=== PATIENT | female | born 1940 | race Caucasian/White ===

== ENCOUNTER 2016-11-06 08:22 | Day surgery (SDC) | payer MEDICARE, OTHER ==
[~2016-11-06 08:22] MED LIST: DIPHENHYDRAMINE HCL 50 MG/ML VIAL ONE; EPINEPHRINE INJ 1 MG/10 ML DISP.SYRIN ONE; FENTANYL CITRATE INJ/PF 100 MCG/2 ML AMPUL ONE; FLUMAZENIL INJ 0.5 MG/5 ML VIAL IV ONE; GLUCAGON,HUMAN RECOMB 1 MG INJ ONE; NALOXONE HCL INJ/PF 0.4 MG/1 ML SDV ONE; ONDANSETRON HCL INJ/PF 4 MG/2 ML SDV ONE; PROMETHAZINE HCL INJ 25 MG/1 ML VIAL ONE
[2016-11-06] MEDS: MIDAZOLAM 2 MG/2 ML INJ ONE ×2 (09:30→09:36)
--- NOTE | 2016-11-06 09:42 | Operative Report ---
Operative Report DATE OF SURGERY: 11/06/16 Operative Report: The risks benefits and alternatives of the procedure explained to the patient in detail and informed consent is obtained that GIF Olympus video scope was inserted into the patient's mouth and hypopharynx the esophagus is identified intubated and insufflated the scope was then advanced through the esophagus stomach and duodenum retroflexion maneuver is done the esophagus stomach and first and second portions of the duodenum examined PREOPERATIVE DIAGNOSIS: Blood in stool POSTOPERATIVE DIAGNOSIS: Gastritis status post biopsy rule out Helicobacter pylori OPERATION: EGD with biopsy SURGEON: BLUE ROLLINS ANESTHESIA: Moderate Sedation - 3 mg of Versed, 50 g of fentanyl. TISSUE REMOVED OR ALTERED: Gastric specimens obtained to rule out for Helicobacter pylori COMPLICATIONS: None. ESTIMATED BLOOD LOSS: none. INTRAOPERATIVE FINDINGS: Normal esophagus. First and second portions of the duodenum are normal. PROCEDURE: Patient tolerated the procedure well. No immediate postprocedure complications are noted. Patient is discharged in good condition. Date of discharge 11/06/2016. Discharge diet: Regular. Discharge activity: Regular. Patient does have a 2-3 follow-up to discuss findings. We'll await on biopsies. If biopsies are negative she may need evaluation from below.
[2016-11-06 10:49] VITALS: BP 103/60
== END 2016-11-06 11:05 | disposition home or self-care (01) ==
LOC: END 08:22
PROVIDERS: ATTEND Internal Medicine Gastroenterology
PROC: 0DB68ZX Excision of Stomach, Via Natural or Artificial Opening Endoscopic, Diagnostic (ICD-10-PCS; principal; 2016-11-06 09:00)
DX: K29.50 Unspecified chronic gastritis without bleeding (principal); K21.9 Gastro-esophageal reflux disease without esophagitis; E78.5 Hyperlipidemia, unspecified; I10 Essential (primary) hypertension; R01.1 Cardiac murmur, unspecified; K75.81 Nonalcoholic steatohepatitis (NASH); Z79.899 Other long term (current) drug therapy
CPT/HCPCS: 43239; 88342 ×2; 88305 ×2; J2250; J3010; J0171; J1200; J1610; J2310; J2405; J2550; J3490

== ENCOUNTER → 2017-01-13 | Outpatient (CLI) | payer MEDICARE, OTHER ==
[2017-01-13 16:18] LABS: HEMATOCRIT 38.5 % (36.0-47.0); HEMOGLOBIN 12.8 g/dL (12.0-15.5); HGB HCT DIFFERENCE -0.1; MEAN CORPUSCULAR HEMOGLOBIN 27.8 pg (27.0-33.4); MEAN CORPUSCULAR HGB CONC 33.3 g/dL (32.0-36.0); MEAN CORPUSCULAR VOLUME 84 fl (80-97); RED CELL DISTRIBUTION WIDTH 17.1 % (11.5-14.0); WHITE BLOOD COUNT 7.6 10^3/uL (4.0-10.5)
== END ==
LOC: OD 15:46
PROVIDERS: ATTEND Surgery
DX: K62.5 Hemorrhage of anus and rectum (principal)
CPT/HCPCS: 36415; 85027

== ENCOUNTER 2017-05-11 08:54 | Emergency (ER) | payer MEDICARE, OTHER ==
[2017-05-11] MEDS ORDERED: ACETAMINOPHEN WITH CODEINE #3 TABLET PO ONE (09:53)
--- NOTE | 2017-05-11 10:14 | ER Document Report ---
ED GI/ - General Chief Complaint: Urinary Problem Stated Complaint: LEFT KNEE PAIN/INCONTINENCE Time Seen by Provider: 05/11/17 09:36 Notes: The patient is a 77-year-old female, past medical history arthritis, hypertension, presents with 1 week of intermittent urinary incontinence and 1 month of left knee pain. She has had x-rays and Dopplers of her knee, saw orthopedics and had a steroid injection. She is taking Motrin and applying Icy Hot to her knee. She is requesting an MRI of her knee today. Patient says that because of her knee, she is having difficulty making it to the bathroom now. She is using crutches. Patient denies chest pain, shortness of breath, fevers, back pain, fecal incontinence, saddle anesthesia, knee injury, numbness or tingling. TRAVEL OUTSIDE OF THE [place] IN LAST 30 DAYS: No - Related Data Allergies/Adverse Reactions: bimatoprost [From Lumigan] Allergy (Mild, Verified 05/11/17 09:03) IRRITATION brimonidine tartrate [From Alphagan] Allergy (Mild, Verified 05/11/17 09:03) RASH, IRRITATION niacin Adverse Reaction (Verified 05/11/17 09:03) Past Medical History - General Information source: Patient - Social History Smoking Status: Never Smoker Family History: Reviewed & Not Pertinent - Past Medical History Cardiac Medical History: Reports: Hx Hypercholesterolemia Denies: Hx Coronary Artery Disease, Hx Heart Attack, Hx Hypertension Pulmonary Medical History: Denies: Hx Asthma, Hx Bronchitis, Hx COPD, Hx Pneumonia Neurological Medical History: Denies: Hx Cerebrovascular Accident, Hx Seizures Renal/ Medical History: Denies: Hx Peritoneal Dialysis GI Medical History: Reports: Hx Gastroesophageal Reflux Disease. Denies: Hx Hepatitis, Hx Hiatal Hernia, Hx Ulcer Musculoskeltal Medical History: Reports Hx Arthritis - GENERALIZED Infectious Medical History: Denies: Hx Hepatitis Past Surgical History: Reports: Hx Appendectomy, Hx Bowel Surgery, Hx Section. Denies: Hx Hysterectomy, Hx Mastectomy, Hx Open Heart Surgery, Hx Pacemaker - Immunizations Hx Diphtheria, Pertussis, Tetanus Vaccination: Yes Hx Pneumococcal Vaccination: 10/27/00 Review of Systems - Review of Systems Notes: REVIEW OF SYSTEMS: CONSTITUTIONAL: -fevers, -chills EENT: -eye pain, -difficulty swallowing, -nasal congestion CARDIOVASCULAR:-chest pain, -syncope. RESPIRATORY: -cough, -SOB GASTROINTESTINAL: -abdominal pain, -nausea, -vomiting, -diarrhea GENITOURINARY: -dysuria, -hematuria, +urinary incontinence MUSCULOSKELETAL: +left knee pain, -back pain, -neck pain SKIN: -rash or skin lesions. HEMATOLOGIC: -easy bruising or bleeding. LYMPHATIC: -swollen, enlarged glands. NEUROLOGICAL: -altered mental status or loss of consciousness, -headache, - neurologic symptoms PSYCHIATRIC: -anxiety, -depression. ALL OTHER SYSTEMS REVIEWED AND NEGATIVE. Physical Exam - Vital signs Vitals: Temp Pulse Resp BP Pulse Ox 97.6 F 113 H 18 127/99 H 97 05/11/17 09:02 05/11/17 09:02 05/11/17 09:02 05/11/17 09:02 05/11/17 09:02 - Notes Notes: PHYSICAL EXAMINATION: GENERAL: Well-appearing, well-nourished and in no acute distress. HEAD: Atraumatic, normocephalic. EYES: Pupils equal round and reactive to light, extraocular movements intact, sclera anicteric, conjunctiva are normal. ENT: nares patent, oropharynx clear without exudates. Moist mucous membranes. NECK: Normal range of motion, supple without lymphadenopathy LUNGS: Breath sounds clear to auscultation bilaterally and equal. No wheezes rales or rhonchi. HEART: Regular rate and rhythm without murmurs ABDOMEN: Soft, nontender, normoactive bowel sounds. No guarding, no rebound. No masses appreciated. EXTREMITIES: Tenderness over left medial knee, no redness or swelling; strong distal pulses NEUROLOGICAL: Cranial nerves grossly intact. Normal speech, normal gait. Normal sensory and motor exams. PSYCH: Normal mood, normal affect. SKIN: Warm, Dry, normal turgor, no rashes or lesions noted. Course - Re-evaluation Re-evalutation: Patient appears well. No evidence of septic joint. Her initial tachycardia on triage resolved and this was most likely caused by her knee pain when she was walking. She has already had x-rays and Dopplers of her left knee and is following up with orthopedics. Told her that unfortunately we are unable to get an MRI of her knee today in the emergency room and to have this scheduled by her orthopedic surgeon. Urine does not show any evidence of UTI. Instructed her to follow-up with gynecology/urology for further evaluation and treatment. - Vital Signs Vital signs: Temp Pulse Resp BP Pulse Ox 97.6 F 113 H 18 127/99 H 97 05/11/17 09:02 05/11/17 09:02 05/11/17 09:02 05/11/17 09:02 05/11/17 09:02 - Laboratory Laboratory results interpreted by me: 05/11/17 10:55 Urine Blood SMALL H Discharge - Discharge Clinical Impression: Left knee pain Qualifiers: Chronicity: chronic Qualified Code(s): M25.562 - Pain in left knee Urinary incontinence Qualifiers: Urinary Incontinence type: unspecified incontinence Qualified Code(s): R32 - Unspecified urinary incontinence Condition: Stable Disposition: HOME, SELF-CARE Additional Instructions: Urinary Incontinence Urinary incontinence is unexpected leakage of urine from the bladder. It can be caused by damaged or weak pelvic muscles (such as after childbirth), bladder inflammation, weak bladder sphincter (valve), medications, prostate problems, and nerve problems. This is a common problem, especially in our older patients. Treatment of incontinence depends on the severity, and on the underlying cause. We test for urinary tract infection. If we suspect a medicine may be contributing to the problem, we may stop it or lower the dosage. If the problem can't be corrected with medication or surgery, you may need to use absorbent underwear. For men, a "condom catheter" over the penis can collect urine. It's sometimes necessary to keep a catheter inside the bladder. The following are different types of urinary incontinence. Stress incontinence: A sudden burst of urine with cough or sneeze. This is common in women with multiple children. Pelvic muscle (Kegel) exercises may help. An incontinence pad catches the occasional accident. If severe, an operation to suspend of the bladder may correct the problem. Overflow incontinence: Leakage from an over-filled bladder. This type of incontinence is usually caused by an enlarged prostate or narrowed urethra. Prostatic obstruction can be treated with medication. Severe cases may require prostate surgery. Neurogenic bladder: Sudden emptying of the bladder due to injury or disease of the nerves that control the bladder, or overflow caused by lack of bladder contraction (atonic bladder). This usually requires a catheter, or the wearing of incontinence undergarments. A weak (atonic) bladder sometimes responds to medicine such as bethanechol (Urecholine). Overactive bladder: The bladder is irritable and tightens when it's not full. The sudden urge to urinate makes it hard to avoid passage of urine. This can often be treated with medication such as oxybutynin. Sphincter atony: The muscle that holds urine in the bladder is weak. This often causes incontinence at night. Medication such as imipramine or psuedoephedrine can sometimes help. Arthritis Your symptoms are due to arthritis. Arthritis is an inflammation of the joints. There are many types -- osteoarthritis (due to "wear and tear"), auto- immmune arthritis (such as rheumatoid, lupus, Lesley's, and others), and crystal -induced arthritis (such as gout and pseudogout). The physician's examination, combined with laboratory tests, will determine the cause of your arthritis. All types of arthritis are treated with antiinflammatory medications. Other medication may be required for special types of arthritis, or if your problem does not respond to the antiinflammatory medicine. Local warmth may be helpful. Move the involved joints through the full range of motion daily. Mild exercise is usually still possible for most persons with arthritis (ask your physician). Swimming provides good exercise without damaging the joints. Contact the physician if you are worsening in any way. Arthralgia Arthralgia is pain in the joints. We use the word arthralgia to describe joint pain where there's no history of injury, no known joint disease, and the joints are normal to examination. Arthralgia can be a symptom of an acute illness, such as influenza, hepatitis, or serum sickness. Sometimes the joint pain comes before any other symptoms. Arthralgia can also be an early symptom of joint disease, such as rheumatoid arthritis or lupus. If arthralgia is accompanied by an acute illness that explains the joint pain, such as mononucleosis, no further testing needs to be done. When there's no clear reason for the pain, tests may be done to see if there's an inflammatory disease of the joints. The usual treatment is anti-inflammatory medication, such as ibuprofen. Joint aches can be soothed with a heating pad or hot compress. If joints remain painful more than a few days, you'll need testing and followup. Return if a joint becomes swollen, red, or severely painful. Prescriptions: Acetaminophen with Codeine [Tylenol #3 Tablet] 1 each PO Q4HP PRN #10 tablet PRN Reason: Referrals: SHAY NEAL MD [Primary Care Provider] - Follow up as needed PATRIZIA TARIQ MD [ACTIVE STAFF] - Follow up as needed ELBA GALINDO MD [ACTIVE STAFF] - Follow up as needed SHAY BRADLEY DO [METAL POLISHER AND BUFFER APPRENTICE] - Follow up as needed
[2017-05-11 11:11] LABS: APPEARANCE,URINE CLEAR; BILIRUBIN,URINE NEGATIVE (NEGATIVE); GLUCOSE, URINE NEGATIVE (NEGATIVE); KETONES,URINE NEGATIVE (NEGATIVE); LEUKOCYTE ESTERASE,URINE NEGATIVE (NEGATIVE); NITRITE,URINE NEGATIVE (NEGATIVE); PROTEIN,URINE NEGATIVE (NEGATIVE); UROBILINOGEN,URINE NEGATIVE mg/dL (<2.0)
[2017-05-11 11:31] VITALS: BP 141/76
== END 2017-05-11 11:40 | disposition home or self-care (01) ==
LOC: ER 08:54
DX: R32 Unspecified urinary incontinence (principal); M25.562 Pain in left knee; R39.198 Other difficulties with micturition; I10 Essential (primary) hypertension
CPT/HCPCS: 99283; 81001; A9270

== ENCOUNTER 2018-11-06 10:10 | Inpatient (IN) | payer MEDICARE ==
[2018-11-06] MEDS ORDERED: ASPIRIN 81 MG TABLET, CHEWABLE PO ONE (10:31)
[2018-11-06] MEDS ORDERED: NORMAL SALINE 1000 ML 1,000 ML IV ONE (10:32)
--- NOTE | 2018-11-06 10:37 | ER Document Report ---
ED Cardiac - General Chief Complaint: Fall Stated Complaint: FALL Time Seen by Provider: 11/06/18 10:22 Mode of Arrival: Ambulatory Information source: Patient Notes: History of Present Illness Chief Complaint:[ chest pain] [ 78 years old female with a history of cardiac arrhythmia was seen by childcare provider and treated with medication which she cannot remember. This morning when she woke up she was feeling heart beating faster but not significant enough but she went out had a breakfast and came back home. The she started having dizziness with rapid heartbeat, appeared pale at one time, and chest pressure. Therefore called EMS and came to the ED. It was associated with diaphoresis, lightheadedness and dizziness. Denies any left arm numbness tingling sensation on nausea. Denies any difficulty in breathing. Denies any blurring of vision, denies any focal weakness numbness tingling sensation. By the time she was brought in to the ED by the EMS she was feeling comfortable. Except slight dizziness. History obtained from [patient] Symptoms began:[ today] Onset: [gradual] Timing: [constant, now gone] Quality: ["pain"] Intensity: [moderate] Location: [Chest] Radiation: [none] Migration: [none] Aggravating factors: [none] Relieving factors: [none] Major PE risk factors: [none] Major aortic dissection risk factors: [none] Review of Systems: All other systems negative as reviewed. CONSTITUTIONAL No fever, No chills, No sweats. EYES No eye pain. ENT No URI symptoms, No sore throat, No ear pain. CARDIOVASCULAR + chest pain, No palpitations, No edema. RESPIRATORY No Cough, No SOB, No wheezing. GASTROINTESTINAL No abdominal pain, No nausea, No diarrhea, No vomiting, No GI Bleeding. GENITOURINARY No UTI symptoms. MUSCULOSKELETAL No back pain, No calf swelling, No calf pain. SKIN No Rash. NEUROLOGIC No Headache Physical Exam CONSTITUTIONAL Vital signs reviewed, Patient appears comfortable, Alert and oriented X 3, Normal stature. Pleasant female not seems to be in any acute distress HEAD Atraumatic, Normocephalic. EYES Eyes are normal to inspection, No discharge from eyes, Extraocular muscles intact, Sclera are normal, Conjunctiva are normal. ENT Ears normal to inspection, Nose examination normal, Posterior pharynx normal, Mouth normal to inspection. NECK Normal ROM, No jugular venous distention, No meningeal signs, no carotid bruit. RESPIRATORY CHEST Chest is nontender, Breath sounds normal, No respiratory distress. CARDIOVASCULAR RRR, No murmurs, Normal S1 S2, No rub, No gallop. ABDOMEN Abdomen is nontender, No pulsatile masses, No other masses, Bowel sounds normal, No distension, No peritoneal signs, No hernias. BACK There is no CVA Tenderness, There is no tenderness to palpation, Normal inspection. UPPER EXTREMITY Inspection normal, No cyanosis, No clubbing, No edema, 2+ radial pulses. LOWER EXTREMITY Inspection normal, No cyanosis, No clubbing, No edema, No calf tenderness, 2+ femoral pulses. NEURO No focal motor deficits, No focal sensory deficits, Speech normal. SKIN Skin is warm, Skin is dry, Skin is normal color. LYMPHATIC No adenopathy in neck. PSYCHIATRIC Normal affect. TRAVEL OUTSIDE OF THE [place] IN LAST 30 DAYS: No - HPI Notes: Dictated - Related Data Allergies/Adverse Reactions: bimatoprost [From Lumigan] Allergy (Mild, Verified 05/11/17 09:03) IRRITATION brimonidine tartrate [From Alphagan] Allergy (Mild, Verified 05/11/17 09:03) RASH, IRRITATION niacin Adverse Reaction (Verified 05/11/17 09:03) Past Medical History - Social History Smoking Status: Never Smoker Frequency of alcohol use: Rare Lives with: Family Family History: Reviewed & Not Pertinent - Past Medical History Cardiac Medical History: Reports: Hx Hypercholesterolemia Denies: Hx Coronary Artery Disease, Hx Heart Attack, Hx Hypertension Pulmonary Medical History: Denies: Hx Asthma, Hx Bronchitis, Hx COPD, Hx Pneumonia Neurological Medical History: Denies: Hx Cerebrovascular Accident, Hx Seizures Renal/ Medical History: Denies: Hx Peritoneal Dialysis GI Medical History: Reports: Hx Gastroesophageal Reflux Disease. Denies: Hx Hepatitis, Hx Hiatal Hernia, Hx Ulcer Musculoskeletal Medical History: Reports Hx Arthritis - GENERALIZED Infectious Medical History: Denies: Hx Hepatitis Past Surgical History: Reports: Hx Appendectomy, Hx Bowel Surgery, Hx Section. Denies: Hx Hysterectomy, Hx Mastectomy, Hx Open Heart Surgery, Hx Pacemaker - Immunizations Hx Diphtheria, Pertussis, Tetanus Vaccination: Yes Hx Pneumococcal Vaccination: 10/27/00 Review of Systems - Review of Systems Notes: Dictated Physical Exam - Vital signs Vitals: Resp Pulse Ox 18 98 11/06/18 10:19 11/06/18 10:19 - Notes Notes: Dictated Course - Re-evaluation Re-evalutation: 11/06/18 15:08 Given IV fluids - Vital Signs Vital signs: Temp Pulse Resp BP Pulse Ox 99.0 F 120 H 18 102/72 95 11/07/18 04:00 11/07/18 07:00 11/07/18 04:00 11/07/18 04:00 11/07/18 04:00 - Laboratory Result Diagrams: 11/07/18 04:25 11/07/18 04:25 Laboratory results interpreted by me: 11/06/18 11/06/18 11/06/18 09:50 09:50 14:17 Plt Count 130 L BUN 23 H Est GFR (Non-Af Amer) 59 L Glucose 120 H NT-Pro-B Natriuret Pep 511 H - Diagnostic Test Radiology reviewed: Reports reviewed - Reported by radiologist as unremarkable - EKG Interpretation by Me Rate: Tachycardia - Sinus tachycardia, normal axis no acute ST elevation ST depression. T wave inversion in V5 V6. Occasional PVC. Discharge - Discharge Clinical Impression: Chest pain, rule out acute myocardial infarction, Palpitation Hypotension Qualifiers: Hypotension type: unspecified hypotension type Qualified Code(s): I95.9 - Hypotension, unspecified Condition: Fair Disposition: ADMITTED INPATIENT Admitting Provider: Hospitalist Unit Admitted: Telemetry
[2018-11-06 10:52] LABS: ABSOLUTE EOSINOPHILS # (AUTO) 0.1 10^3/uL (0.0-0.6); ABSOLUTE LYMPHOCYTES (AUTO) 1.9 10^3/uL (0.5-4.7); ABSOLUTE MONOCYTES (AUTO) 0.7 10^3/uL (0.1-1.4); ABSOLUTE NEUT (AUTO) 4.4 10^3/uL (1.7-8.2); BASOPHILS % (AUTO) 0.6 % (0-2); EOSINOPHILS % (AUTO) 0.8 % (0-6); HEMATOCRIT 41.7 % (36.0-47.0); HEMOGLOBIN 13.8 g/dL (12.0-15.5); MEAN CORPUSCULAR HEMOGLOBIN 28.3 pg (27.0-33.4); MEAN CORPUSCULAR VOLUME 86 fl (80-97); MONOCYTES % (AUTO) 10.1 % (3-13); RED BLOOD COUNT 4.87 10^6/uL (3.72-5.28); RED CELL DISTRIBUTION WIDTH 13.8 % (11.5-14.0); SEGMENTED NEUTROPHILS % (AUTO) 61.5 % (42-78); TOTAL CELLS COUNTED % (AUTO) 100 %; WHITE BLOOD COUNT 7.1 10^3/uL (4.0-10.5)
--- NOTE | 2018-11-06 11:01 | RADIOLOGY REPORT (SQ) ---
EXAM DESCRIPTION: CHEST SINGLE VIEW COMPLETED DATE/TIME: 11/06/2018 10:53 am REASON FOR STUDY: Chest pain COMPARISON: 01/14/2012. EXAM PARAMETERS: NUMBER OF VIEWS: One view. TECHNIQUE: Single frontal radiographic view of the chest acquired. RADIATION DOSE: NA LIMITATIONS: None. FINDINGS: LUNGS AND PLEURA: No opacities, masses or pneumothorax. No pleural effusion. MEDIASTINUM AND HILAR STRUCTURES: No masses. Contour normal. HEART AND VASCULAR STRUCTURES: Heart normal in size. Normal vasculature. Ectatic aorta. BONES: No acute findings. HARDWARE: None in the chest. OTHER: No other significant finding. IMPRESSION: NO ACUTE RADIOGRAPHIC FINDING IN THE CHEST. TECHNICAL DOCUMENTATION: JOB ID: [id number] [employer]- All Rights Reserved Reading location - IP/workstation name: [email or web address]
[2018-11-06 11:09] LABS: ALANINE AMINOTRANSFERASE 19 U/L (9-52); ALBUMIN 4.6 g/dL (3.5-5.0); ALKALINE PHOSPHATASE 50 U/L (38-126); ANION GAP 10 (5-19); ASPARTATE AMINO TRANSFERASE 24 U/L (14-36); BILIRUBIN,DIRECT 0.1 mg/dL (0.0-0.4); BILIRUBIN,TOTAL 0.5 mg/dL (0.2-1.3); BLOOD UREA NITROGEN 23 mg/dL (7-20); CALCIUM 10.1 mg/dL (8.4-10.2); CARBON DIOXIDE 26 mmol/L (22-30); CHLORIDE 104 mmol/L (98-107); CREATINE KINASE 83 U/L (30-135); GLUCOSE 120 mg/dL (75-110); POTASSIUM 4.4 mmol/L (3.6-5.0); SODIUM 140.4 mmol/L (137-145); TOTAL PROTEIN 7.5 g/dL (6.3-8.2)
[2018-11-06 11:17] LABS: PLATELET COUNT 130 10^3/uL (150-450)
[2018-11-06 11:21] LABS: CREATINE KINASE MB 1.59 ng/mL (<4.55)
[2018-11-06 11:22] LABS: TROPONIN I < 0.012 ng/mL
[2018-11-06] MEDS ORDERED: NORMAL SALINE 1000 ML 1,000 ML IV PRN (12:44)
[2018-11-06] MEDS ORDERED: METOPROLOL TARTRATE 25 MG TABLET PO ONE (14:50)
[2018-11-06] MEDS ORDERED: METOPROLOL TARTRATE PF/INJ 5 MG/5 ML SDV IV PRN (15:58)
--- NOTE | 2018-11-06 16:19 | PDOC H&P ---
History of Present Illness Admission Date/PCP: RAGHAV LARES MD Patient complains of: Came in with complaints of headaches and dizziness and palpitations in association with left-sided chest pain. History of Present Illness: MEGAN ARTEAGA is a 78 year old female with history of colon resection secondary to chronic bleeding, hyperlipidemia, gastroesophageal reflux disease, cardiac arrhythmia for unknown etiology came to the emergency room with compla ints of on and off headaches heaviness in the head associated with shortness of breath palpitations. According to the patient and family this is going on for a while and for the last few days things are getting worse decided to came to the emergency room for further evaluation. For this palpitations she saw solar panel installer in [facility] they did a heart monitoring with the device and she was told that also electrical activity was abnormal in the heart but she is stable nothing to worry about and she was started on metoprolol. She does not know further details. This was happened 5 years ago. The chest pain describing today's left-sided chest pain heaviness in the chest associated with shortness of breath on and off pain associated with increasing activity. No nausea or vomitings diarrhea. Cough increasing pain in the both lower extremity with activity for the last month or 2. Emergency room she is found to be in the heart rate of more than 120 with hypotension systolic blood pressure of 90s she was given 1 L of IV fluids. At the time of examination blood pressure is still 95/70. With heart rate of 110. EKG shows to me is atrial fibrillation without any P wave and troponin was negative. Past Medical History Cardiac Medical History: Reports: Hyperlipidema Denies: Coronary Artery Disease, Myocardial Infarction, Hypertension Pulmonary Medical History: Denies: Asthma, Bronchitis, Chronic Obstructive Pulmonary Disease (COPD), Pneumonia Neurological Medical History: Denies: Seizures GI Medical History: Reports: Gastroesophageal Reflux Disease Denies: Hepatitis, Hiatal Hernia Musculoskeltal Medical History: Reports: Arthritis - GENERALIZED Hematology: Denies: Anemia, Sickle Cell Disease Past Surgical History Past Surgical History: Reports: Appendectomy, Section, Other - Near complete colon resection Denies: Amputation, Hysterectomy, Mastectomy, Pacemaker Social History Smoking Status: Never Smoker Frequency of Alcohol Use: None Hx Recreational Drug Use: No Hx Prescription Drug Abuse: No - Advance Directive Resuscitation Status: Full Code Family History Family History: Reviewed & Not Pertinent Parental Family History Reviewed: Yes - Family history of colon cancer and breast cancer. Children Family History Reviewed: Yes Sibling(s) Family History Reviewed.: Yes Medication/Allergy Allergies/Adverse Reactions: bimatoprost [From Lumigan] Allergy (Mild, Verified 05/11/17 09:03) IRRITATION brimonidine tartrate [From Alphagan] Allergy (Mild, Verified 05/11/17 09:03) RASH, IRRITATION niacin Adverse Reaction (Verified 05/11/17 09:03) Review of Systems Constitutional: ABSENT: fever(s), headache(s), weight gain, weight loss Eyes: ABSENT: visual disturbances Ears: ABSENT: hearing changes Cardiovascular: PRESENT: chest pain, dyspnea on exertion. ABSENT: edema, palpitations Respiratory: ABSENT: hemoptysis Musculoskeletal: PRESENT: other - Lower leg pains Neurological: PRESENT: dizziness. ABSENT: focal weakness, frequent falls, syncope Psychiatric: ABSENT: anxiety, depression, hallucinations, homidical ideation Physical Exam Vital Signs: Temp Pulse Resp BP Pulse Ox 97.8 F 16 92/69 L 96 11/06/18 10:22 11/06/18 11:04 11/06/18 11:04 11/06/18 11:04 Intake & Output 11/05/18 11/06/18 11/07/18 06:59 06:59 06:59 Intake Total 1000 Balance 1000 Weight 72.575 kg General appearance: PRESENT: no acute distress Head exam: PRESENT: atraumatic Eye exam: PRESENT: PERRLA Mouth exam: PRESENT: moist Neck exam: ABSENT: carotid bruit, JVD, lymphadenopathy, thyromegaly Respiratory exam: PRESENT: clear to auscultation aline. ABSENT: rales, rhonchi, w heezes Cardiovascular exam: PRESENT: systolic murmur, tachycardia GI/Abdominal exam: PRESENT: normal bowel sounds, soft, other - Surgical scar over the abdomen. ABSENT: tenderness Extremities exam: PRESENT: full ROM. ABSENT: calf tenderness, clubbing, pedal edema Neurological exam: PRESENT: alert, awake, oriented to person, oriented to place, oriented to time, oriented to situation, CN II-XII grossly intact. ABSENT: motor sensory deficit Psychiatric exam: PRESENT: appropriate affect, normal mood. ABSENT: homicidal ideation, suicidal ideation Results Laboratory Results: 11/06/18 09:50 11/06/18 09:50 11/06/18 11/06/18 09:50 09:50 WBC 7.1 RBC 4.87 Hgb 13.8 Hct 41.7 MCV 86 MCH 28.3 MCHC 33.0 RDW 13.8 Plt Count 130 L Seg Neutrophils % 61.5 Lymphocytes % 27.0 Monocytes % 10.1 Eosinophils % 0.8 Basophils % 0.6 Absolute Neutrophils 4.4 Absolute Lymphocytes 1.9 Absolute Monocytes 0.7 Absolute Eosinophils 0.1 Absolute Basophils 0.0 Sodium 140.4 Potassium 4.4 Chloride 104 Carbon Dioxide 26 Anion Gap 10 BUN 23 H Creatinine 0.92 Est GFR ( Amer) > 60 Est GFR (Non-Af Amer) 59 L Glucose 120 H Calcium 10.1 Total Bilirubin 0.5 AST 24 ALT 19 Alkaline Phosphatase 50 Total Protein 7.5 Albumin 4.6 11/06/18 11/06/18 11/06/18 09:50 09:50 14:17 Creatine Kinase 83 CK-MB (CK-2) 1.59 Troponin I < 0.012 < 0.012 NT-Pro-B Natriuret Pep 11/06/18 14:17 Creatine Kinase CK-MB (CK-2) Troponin I NT-Pro-B Natriuret Pep 511 H Impressions: Chest X-Ray 11/06/18 10:31 IMPRESSION: NO ACUTE RADIOGRAPHIC FINDING IN THE CHEST. Assessment & Plan - Diagnosis (1) Chest pain, rule out acute myocardial infarction Is this a current diagnosis for this admission?: Yes Plan: 11/06/2018-patient came in with low blood pressure palpitations and left-sided chest pain plan to put her on telemetry telemetry monitoring started on aspirin 81 mg p.o. daily placed on atorvastatin 10 mg p.o. nightly cardiology GI consult was requested for questionable atrial fibrillation echocardiogram was requested lipid panel was requested for tomorrow cardiac enzymes x3 were requested. She was also placed on oxygen 2 L nasal cannula. I am going to put her out for nitroglycerin but 0.4 mg every 5 minutes as needed for chest pain. Going to schedule for the stress test tomorrow. (2) Hypotension Qualifiers: Hypotension type: unspecified hypotension type Qualified Code(s): I95.9 - Hypotension, unspecified Is this a current diagnosis for this admission?: Yes Plan: 11/06/2018-patient was hypotensive when she came to the emergency room systolic blood pressure in the 90s with heart rate of more than 120 she was given 1 L of fluid in the ER still blood pressure at the time of my examination is 95/70. But rate is around 110. Plan to continue IV fluids at 75 cc/h. We are going to watch for the fluid overload. Hypertension may be secondary to poor oral intake. (3) Palpitation Is this a current diagnosis for this admission?: Yes Plan: 11/06/2018 patient is complaining of palpitations and family is giving the history of this palpitations associated with pallor of the skin frequently the last several weeks EKG looks like it may be atrial fibrillation and. Plan is to do the echocardiogram cardiology consult cardiac enzymes x3 also started her on metoprolol 5 mg IV every 6 as needed for heart rate more than 110. (4) History of colon resection Is this a current diagnosis for this admission?: Yes Plan: 11/06/2018-patient is given the history of colon resection near complete colonic resection secondary to severe continuous GI bleed of unknown cause as per the family the exact reason for bleed from the lower GI is unknown. No complaints of blood in the stool this time. (5) Hyperlipemia Is this a current diagnosis for this admission?: Yes Plan: 11/06/2018-patient is giving history of hyperlipidemia with elevated LDL and also high HDL. She was placed on atorvastatin 40 mg p.o. nightly. I am going to check a lipid panel tomorrow. (6) Leg pain, bilateral Is this a current diagnosis for this admission?: Yes Plan: 11/06/2018 patient is complaining of bilateral lower leg pains the pains are increasing with walking less than 5200 feet she is getting Requip at home but is not helping. I requested for arterial Doppler of the lower extremities. - Time Time Spent: 50 to 70 Minutes Critical Time spent with patient: 15-24 minutes Medications reviewed and adjusted accordingly: Yes Anticipated discharge: Home
--- NOTE | 2018-11-06 16:30 | RADIOLOGY REPORT (SQ) ---
EXAM DESCRIPTION: CT HEAD WITHOUT COMPLETED DATE/TIME: 11/06/2018 4:21 pm REASON FOR STUDY: headache COMPARISON: 05/03/2014. TECHNIQUE: Axial images acquired through the brain without intravenous contrast. Images reviewed wi th bone, brain and subdural windows. Additional sagittal and coronal reconstructions were generated. Images stored on PACS. All CT scanners at this facility use dose modulation, iterative reconstruction, and/or weight based d osing when appropriate to reduce radiation dose to as low as reasonably achievable (ALARA). [facility]: Dose Right [facility]: CareDose [facility]: Dose Right [facility]: Teradose 4D [facility]: Geev[employer] RADIATION DOSE: CT Rad equipment meets quality standard of care and radiation dose reduction techniq ues were employed. CTDIvol: 53.2 mGy. DLP: 937 mGy-cm. mGy. LIMITATIONS: None. FINDINGS: VENTRICLES: Prominent. CEREBRUM: No masses. No hemorrhage. No midline shift. Areas of low density in the white matter mos t likely due to chronic micro-vascular ischemic change. No evidence for acute infarction. CEREBELLUM: No masses. No hemorrhage. No alteration of density. No evidence for acute infarction. EXTRAAXIAL SPACES: Mild age-related involutional change. No fluid collections. No masses. ORBITS AND GLOBE: No intra- or extraconal masses. Normal contour of globe without masses. CALVARIUM: No fracture. PARANASAL SINUSES: No fluid or mucosal thickening. SOFT TISSUES: No mass or hematoma. OTHER: No other significant finding. IMPRESSION: MILD CHRONIC CHANGES OF ATROPHY AND MICROVASCULAR ISCHEMIA. NO ACUTE PROCESS. EVIDENCE OF ACUTE STROKE: NO. TECHNICAL DOCUMENTATION: JOB ID: [id number] Quality ID # [id number]: Final reports with documentation of one or more dose reduction techniques (e.g., Au tomated exposure control, adjustment of the mA and/or kV according to patient size, use of iterative reconstruction technique) 2010 [employer]- All Rights Reserved Reading location - IP/workstation name: [email or web address]
[2018-11-06] MEDS: ENOXAPARIN SODIUM INJ 40 MG/0.4 ML DISP.SYRIN SUBCUT SCH (18:36)
[2018-11-06 20:37] LABS: CREATINE KINASE MB 1.23 ng/mL (<4.55)
[2018-11-06 20:40] LABS: TROPONIN I < 0.012 ng/mL
[2018-11-06] MEDS ORDERED: PRAMIPEXOLE DI-HCL 0.5 MG TABLET PO SCH (22:00)
[2018-11-06] MEDS ORDERED: METOPROLOL SUCCINATE 50 MG TAB.SR.24H PO SCH (22:00)
[2018-11-06] MEDS: NORMAL SALINE 1000 ML 1,000 ML IV PRN (22:31)
--- NOTE | 2018-11-06 23:30 | XCELERA REPORT ---
[address] [address] Transthoracic Echocardiogram Report Name: MEGAN ARTEAGA Age: 78 yrs Gender: Female : 1940 Patient Status: Inpatient Patient Location: [address] [place], [place] [address] Study Date: 11/06/2018 05:50 PM Height: 59 in Weight: 160 lb BSA: 1.7 m2 Procedure: A two-dimensional transthoracic echocardiogram with color flow and Doppler was performed. The study was technically difficult with many images being suboptimal in quality. Images were not obtained from all of the standard acoustic windows due to the limited scope of the study. Reason For Study: A FIB History: ATRIAL FIBRILLATION. Ordering Physician: CAROL MADSEN Performed By: Judi Soliman Interpretation Summary The left ventricle is normal in size. There is normal left ventricular wall thickness. There is no thrombus. The right ventricle is not well visualized secondary to technical limitations The right ventricle is grossly normal size. The right atrium is normal. The left atrial size is normal. There is no evidence of mitral valve prolapse. There is no vegetation seen on the mitral valve. There is no mitral valve stenosis. There is a mild amount of mitral regurgitation There is no aortic valvular vegetation. There is mild aortic stenosis There is a peak gradient of 23 mm of Hg. There is no LVOT obstruction. No aortic regurgitation is present. There is no tricuspid stenosis. There is a mild amount of tricuspid regurgitation Right ventricular systolic pressure is normal. RVSP is 21 to 26 mm of Hg , wih RA mean of to 10. The inferior vena cava appeared normal and decreased > 50% with respiration (RAP 5-10 mmHg) There is no pericardial effusion. MMode/2D Measurements & Calculations RVDd: 2.2 cm LVIDd: 4.3 cm FS: 33.4 % Ao root diam: 2.2 cm IVSd: 1.0 cm LVIDs: 2.9 cm EDV(Teich): 83.4 ml Ao root area: 3.7 cm2 LVPWd: 0.99 cm ESV(Teich): 31.3 ml LA dimension: 3.2 cm EF(Teich): 62.4 % Doppler Measurements & Calculations MV E max alea: MV P1/2t max alea: Ao V2 max: LV V1 max P.5 cm/sec 200.6 cm/sec 238.1 cm/sec 12.6 mmHg MV A max alea: MV P1/2t: 69.1 msec Ao max PG: LV V1 mean P.1 cm/sec MVA(P1/2t): 3.2 cm2 22.7 mmHg 8.6 mmHg MV E/A: 2.8 MV dec slope: Ao V2 mean: LV V1 max: 176.4 cm/sec 176.5 cm/sec 850.2 cm/sec2 Ao mean PG: LV V1 mean: MV dec time: 0.15 sec 14.4 mmHg 132.6 cm/sec Ao V2 VTI: 46.0 cm LV V1 VTI: 35.5 cm PA V2 max: TR max alea: MV P1/2t-pr_phl: 142.5 cm/sec 196.1 cm/sec 69.1 msec PA max P.1 mmHgTR max P.4 mmHg Left Ventricle The left ventricle is normal in size. There is normal left ventricular wall thickness. No True apical 2 chamber views obtained.Hence cannot comment on the apical anterior , the basal anterior, the basal inferior and apical inferior kong.The mid anterior , the mid inferior and the rest of the LV kong contract normally. .Normal LVEF is normal and is greater than 60% in the limited views. LV diastolic function could not be adequately assessed due to atrial fibrilation. There is no thrombus. Right Ventricle The right ventricle is not well visualized secondary to technical limitations. The right ventricle is grossly normal size. Atria The right atrium is normal. The left atrial size is normal. Mitral Valve There is mild to moderate mitral annular calcification. There is no evidence of mitral valve prolapse. There is no vegetation seen on the mitral valve. There is no mitral valve stenosis. There is a mild amount of mitral regurgitation. Aortic Valve There is no aortic valvular vegetation. There is mild aortic stenosis. There is a peak gradient of 23 mm of Hg. There is no LVOT obstruction. No aortic regurgitation is present. Tricuspid Valve There is no tricuspid stenosis. There is a mild amount of tricuspid regurgitation. Right ventricular systolic pressure is normal. RVSP is 21 to 26 mm of Hg , wih RA mean of to 10. Pulmonic Valve There is no pulmonic valvular stenosis. There is no pulmonic valvular regurgitation. Great Vessels The aortic root is normal size. The inferior vena cava appeared normal and decreased > 50% with respiration (RAP 5-10 mmHg). Effusions There is no pericardial effusion. : CAROL MADSEN > Terra Kurtz
[2018-11-07 05:31] LABS: ABSOLUTE EOSINOPHILS # (AUTO) 0.2 10^3/uL (0.0-0.6); ABSOLUTE LYMPHOCYTES (AUTO) 1.8 10^3/uL (0.5-4.7); ABSOLUTE MONOCYTES (AUTO) 0.7 10^3/uL (0.1-1.4); ABSOLUTE NEUT (AUTO) 3.3 10^3/uL (1.7-8.2); BASOPHILS % (AUTO) 0.5 % (0-2); EOSINOPHILS % (AUTO) 2.7 % (0-6); HEMATOCRIT 35.7 % (36.0-47.0); HEMOGLOBIN 11.9 g/dL (12.0-15.5); LYMPHOCYTES % (AUTO) 29.6 % (13-45); MEAN CORPUSCULAR HEMOGLOBIN 28.6 pg (27.0-33.4); MEAN CORPUSCULAR HGB CONC 33.4 g/dL (32.0-36.0); MEAN CORPUSCULAR VOLUME 86 fl (80-97); MONOCYTES % (AUTO) 11.8 % (3-13); PLATELET COUNT 117 10^3/uL (150-450); RED BLOOD COUNT 4.16 10^6/uL (3.72-5.28); SEGMENTED NEUTROPHILS % (AUTO) 55.4 % (42-78); TOTAL CELLS COUNTED % (AUTO) 100 %
[2018-11-07 05:40] LABS: ALANINE AMINOTRANSFERASE 28 U/L (9-52); ALBUMIN 3.3 g/dL (3.5-5.0); ALKALINE PHOSPHATASE 42 U/L (38-126); ANION GAP 7 (5-19); ASPARTATE AMINO TRANSFERASE 19 U/L (14-36); BILIRUBIN,DIRECT 0.1 mg/dL (0.0-0.4); BILIRUBIN,TOTAL 0.3 mg/dL (0.2-1.3); BLOOD UREA NITROGEN 19 mg/dL (7-20); CALCIUM 8.5 mg/dL (8.4-10.2); CARBON DIOXIDE 23 mmol/L (22-30); CHLORIDE 110 mmol/L (98-107); CREATINE KINASE 62 U/L (30-135); GLUCOSE 113 mg/dL (75-110); POTASSIUM 4.3 mmol/L (3.6-5.0); TOTAL PROTEIN 5.8 g/dL (6.3-8.2); TRIGLYCERIDES 191 mg/dL (<150)
[2018-11-07 05:51] LABS: DIRECT LDL 100 mg/dL (<100)
[2018-11-07 05:53] LABS: VLDL CHOLESTEROL 38.2 mg/dL (10-31)
[2018-11-07 05:56] LABS: CREATINE KINASE MB 1.04 ng/mL (<4.55); NT PRO BNP 1690 pg/mL (<450)
[2018-11-07 06:00] LABS: TROPONIN I < 0.012 ng/mL
[2018-11-07] MEDS ORDERED: LANSOPRAZOLE 30 MG TAB.RAP.DR PO SCH (06:00)
[2018-11-07] MEDS ORDERED: CHOLECALCIFEROL PO SCH (08:00)
[2018-11-07] MEDS ORDERED: [UNRECOGNIZED DRUG - OTHER] PO SCH (08:00)
[2018-11-07] MEDS ORDERED: CHOLECALCIFEROL (D3) 1,000 UNIT TABLET PO SCH (08:00)
[2018-11-07] MEDS ORDERED: DIGOXIN INJ 0.5 MG/2 ML AMPULE IV ONE (08:08)
--- NOTE | 2018-11-07 09:19 | EKG REPORT ---
SEVERITY:- ABNORMAL ECG - JUNCTIONAL TACHYCARDIA NONSPECIFIC T ABNORMALITIES, LATERAL LEADS : Confirmed by: Corwin Clemente MD 07-Nov-2018 09:18:21
--- NOTE | 2018-11-07 09:47 | RADIOLOGY REPORT (SQ) ---
EXAM DESCRIPTION: CTA CHEST COMPLETED DATE/TIME: 11/07/2018 9:39 am REASON FOR STUDY: shortness of breath COMPARISON: None. TECHNIQUE: CT scan of the chest performed using helical scanning technique with dynamic intravenous contrast injection. Images reviewed with lung, soft tissue and bone windows. Reconstructed coronal and sagittal MPR images reviewed. Additional 3 dimensional post-processing performed to develop Maximal Intensity Projection images (SD P). All images stored on PACS. All CT scanners at this facility use dose modulation, iterative reconstruction, and/or weight based d osing when appropriate to reduce radiation dose to as low as reasonably achievable (ALARA). [facility]: Dose Right [facility]: CareDose [facility]: Dose Right [facility]: Teradose 4D [facility]: co[employer]banize CONTRAST TYPE AND DOSE: contrast/concentration: Isovue 350.00 mg/ml; Total Contrast Delivered: 71.0 ml; Total Saline Delivered: 80.0 ml Contrast bolus optimized for the pulmonary arteries. Not diagnostic for the aorta. RENAL FUNCTION: GFR > 60. RADIATION DOSE: CT Rad equipment meets quality standard of care and radiation dose reduction techniq ues were employed. CTDIvol: 20.0 - 39.7 mGy. DLP: 759 mGy-cm. . LIMITATIONS: None. FINDINGS: LUNGS AND PLEURA: No masses, infiltrates, or pneumothorax. No pleural effusions or pleura l calcifications. AORTA AND GREAT VESSELS: No aneurysm. Contrast bolus not optimized for the aorta. HEART: No pericardial effusion. No significant coronary artery calcifications. PULMONARY ARTERIES: No emboli visualized in the main pulmonary arteries or the segmental branches. HILAR AND MEDIASTINAL STRUCTURES: No identified masses or abnormal nodes. HARDWARE: None in the chest. UPPER ABDOMEN: No significant findings. Limited exam. THYROID AND OTHER SOFT TISSUES: No masses. No adenopathy. BONES: No acute or significant finding. 3D MIPS: Confirm above findings. OTHER: No other significant finding. IMPRESSION: No pulmonary emboli. COMMENT: Quality ID # 436: Final reports with documentation of one or more dose reduction techniques (e.g., Automated exposure control, adjustment of the mA and/or kV according to patient size, use of iterative reconstruction technique) TECHNICAL DOCUMENTATION: JOB ID: [id number] [employer]- All Rights Reserved Reading location - IP/workstation name: [email or web address]
[2018-11-07] MEDS ORDERED: (PENDING PHARMACY ID) (Esomeprazole Mag Trihydrate [Nexium] 40 MG) PO SCH (10:00)
[2018-11-07] MEDS ORDERED: METOPROLOL SUCCINATE 25 MG TAB.SR.24H PO SCH (10:00)
[2018-11-07] MEDS ORDERED: LORATADINE 10 MG TABLET PO SCH (10:00)
[2018-11-07] MEDS ORDERED: HYDROCHLOROTHIAZIDE 12.5 MG TABLET PO SCH (10:00)
[2018-11-07] MEDS ORDERED: ASPIRIN 81 MG TABLET, CHEWABLE PO SCH (10:00)
[2018-11-07] MEDS ORDERED: ATORVASTATIN CALCIUM 40 MG TABLET PO SCH (10:00)
--- NOTE | 2018-11-07 10:11 | PDOC PROGRESS REPORT ---
Subjective Progress Note for:: 11/07/18 Subjective:: 11/07/2018 no acute events in the last 24 hours. Patient is afebrile. She has a CT of the chest was done to rule out PE which was negative. EKG indicates she has a junctional rhythm every time she stands up with minimal activity heart rate is going up to 140s. Dr. Jerardo Coffey recommended to give digoxin 25 mg IV 1 dose. Patient is getting IV fluids still the blood pressure is 102/72. But the patient states she is feeling much better. She is complaining of back pain she is requesting something like Percocets as needed for that problem. Reason For Visit: HYPOTENSION/ATRIAL FIB Physical Exam Vital Signs: Temp Pulse Resp BP Pulse Ox 99.0 F 120 H 18 102/72 95 11/07/18 04:00 11/07/18 07:00 11/07/18 04:00 11/07/18 04:00 11/07/18 04:00 Intake & Output 11/06/18 11/07/18 11/08/18 06:59 06:59 06:59 Intake Total 1220 Balance 1220 Weight 73.8 kg General appearance: PRESENT: no acute distress Head exam: PRESENT: atraumatic Eye exam: PRESENT: PERRLA Mouth exam: PRESENT: dry mucosa Neck exam: ABSENT: carotid bruit, JVD, lymphadenopathy, thyromegaly Respiratory exam: PRESENT: clear to auscultation aline. ABSENT: rales, rhonchi, wheezes Cardiovascular exam: PRESENT: systolic murmur, tachycardia GI/Abdominal exam: PRESENT: normal bowel sounds, soft, other - Surgical scar over the abdomen. ABSENT: distended, guarding, mass, organolmegaly, rebound, tenderness Extremities exam: PRESENT: full ROM. ABSENT: calf tenderness, clubbing, pedal edema Neurological exam: PRESENT: alert, awake, oriented to person, oriented to place, oriented to time, oriented to situation, CN II-XII grossly intact. ABSENT: motor sensory deficit Psychiatric exam: PRESENT: appropriate affect, normal mood. ABSENT: homicidal ideation, suicidal ideation Results Laboratory Results: 11/07/18 04:25 11/07/18 04:25 11/06/18 11/06/18 11/07/18 09:50 09:50 04:25 WBC 7.1 RBC 4.87 Hgb 13.8 Hct 41.7 MCV 86 MCH 28.3 MCHC 33.0 RDW 13.8 Plt Count 130 L Seg Neutrophils % 61.5 Lymphocytes % 27.0 Monocytes % 10.1 Eosinophils % 0.8 Basophils % 0.6 Absolute Neutrophils 4.4 Absolute Lymphocytes 1.9 Absolute Monocytes 0.7 Absolute Eosinophils 0.1 Absolute Basophils 0.0 Sodium 140.4 140.0 Potassium 4.4 4.3 Chloride 104 110 H Carbon Dioxide 26 23 Anion Gap 10 7 BUN 23 H 19 Creatinine 0.92 0.66 Est GFR ( Amer) > 60 > 60 Est GFR (Non-Af Amer) 59 L > 60 Glucose 120 H 113 H Calcium 10.1 8.5 Total Bilirubin 0.5 0.3 AST 24 19 ALT 19 28 Alkaline Phosphatase 50 42 Total Protein 7.5 5.8 L Albumin 4.6 3.3 L Triglycerides 191 H Cholesterol 173.50 LDL Cholesterol Direct 100 VLDL Cholesterol 38.2 H HDL Cholesterol 29 L 11/07/18 04:25 WBC 6.0 RBC 4.16 Hgb 11.9 L Hct 35.7 L MCV 86 MCH 28.6 MCHC 33.4 RDW 14.0 Plt Count 117 L Seg Neutrophils % 55.4 Lymphocytes % 29.6 Monocytes % 11.8 Eosinophils % 2.7 Basophils % 0.5 Absolute Neutrophils 3.3 Absolute Lymphocytes 1.8 Absolute Monocytes 0.7 Absolute Eosinophils 0.2 Absolute Basophils 0.0 Sodium Potassium Chloride Carbon Dioxide Anion Gap BUN Creatinine Est GFR ( Amer) Est GFR (Non-Af Amer) Glucose Calcium Total Bilirubin AST ALT Alkaline Phosphatase Total Protein Albumin Triglycerides Cholesterol LDL Cholesterol Direct VLDL Cholesterol HDL Cholesterol 11/06/18 11/06/18 11/06/18 09:50 09:50 14:17 Creatine Kinase 83 CK-MB (CK-2) 1.59 Troponin I < 0.012 < 0.012 NT-Pro-B Natriuret Pep 11/06/18 11/06/18 11/06/18 14:17 14:17 14:17 Creatine Kinase 61 CK-MB (CK-2) 1.36 Troponin I Cancelled NT-Pro-B Natriuret Pep 511 H 11/06/18 11/06/18 11/07/18 19:56 19:56 04:25 Creatine Kinase 51 62 CK-MB (CK-2) 1.23 Troponin I < 0.012 NT-Pro-B Natriuret Pep 11/07/18 04:25 Creatine Kinase CK-MB (CK-2) 1.04 Troponin I < 0.012 NT-Pro-B Natriuret Pep 1690 H Impressions: Head CT 11/06/18 00:00 IMPRESSION: MILD CHRONIC CHANGES OF ATROPHY AND MICROVASCULAR ISCHEMIA. NO ACUTE PROCESS. EVIDENCE OF ACUTE STROKE: NO. Chest X-Ray 11/06/18 10:31 IMPRESSION: NO ACUTE RADIOGRAPHIC FINDING IN THE CHEST. Chest/Abdomen CTA 11/07/18 00:00 IMPRESSION: No pulmonary emboli. Assessment & Plan - Diagnosis (1) Chest pain, rule out acute myocardial infarction Is this a current diagnosis for this admission?: Yes Plan: 11/06/2018-patient came in with low blood pressure palpitations and left-sided chest pain plan to put her on telemetry telemetry monitoring started on aspirin 81 mg p.o. daily placed on atorvastatin 10 mg p.o. nightly cardiology GI consult was requested for questionable atrial fibrillation echocardiogram was requested lipid panel was requested for tomorrow cardiac enzymes x3 were requested. She was also placed on oxygen 2 L nasal cannula. I am going to put her out for nitroglycerin but 0.4 mg every 5 minutes as needed for chest pain. Going to schedule for the stress test tomorrow. 11/07/2018-patient denies any chest pain since the admission. She still complaining of palpitations with minimal activity heart rate is going up to 140 she is in junctional rhythm she is going to get digoxin 0.25 mg IV [address] of the chest was negative for PE. Echocardiogram was done EF is more than 60%. No evidence of congestive heart failure. (2) Hypotension Qualifiers: Hypotension type: unspecified hypotension type Qualified Code(s): I95.9 - Hypotension, unspecified Is this a current diagnosis for this admission?: Yes Plan: 11/06/2018-patient was hypotensive when she came to the emergency room systolic blood pressure in the 90s with heart rate of more than 120 she was given 1 L of fluid in the ER still blood pressure at the time of my examination is 95/70. But rate is around 110. Plan to continue IV fluids at 75 cc/h. We are going to watch for the fluid overload. Hypertension may be secondary to poor oral intake. 11/07/2018-patient is getting IV fluids at 50 cc/h blood pressure is 102/72 patient denies any syncope or dizziness. Plan is to continue the IV hydration. Hypotension most likely secondary to poor oral intake. (3) Palpitation Is this a current diagnosis for this admission?: Yes Plan: 11/06/2018 patient is complaining of palpitations and family is giving the history of this palpitations associated with pallor of the skin frequently the last several weeks EKG looks like it may be atrial fibrillation and. Plan is to do the echocardiogram cardiology consult cardiac enzymes x3 also started her on metoprolol 5 mg IV every 6 as needed for heart rate more than 110. 11/07/2018-EKG shows junctional rhythm base at rest heart rate is more than 110 and with activity is going to 140 we are going to give 1 dose of digoxin 0.[address] Kurtz is following the patient. (4) History of colon resection Is this a current diagnosis for this admission?: Yes Plan: 11/06/2018-patient is given the history of colon resection near complete colonic resection secondary to severe continuous GI bleed of unknown cause as per the family the exact reason for bleed from the lower GI is unknown. No complaints of blood in the stool this time. 11/07/2018-plan is to continue the present management. (5) Hyperlipemia Is this a current diagnosis for this admission?: Yes Plan: 11/06/2018-patient is giving history of hyperlipidemia with elevated LDL and also high HDL. She was placed on atorvastatin 40 mg p.o. nightly. I am going to check a lipid panel tomorrow. 11/07/2018-lipid profile was done this morning total cholesterol is 173, LDL is 100 HDL is 29. Plan is to continue atorvastatin today. (6) Leg pain, bilateral Is this a current diagnosis for this admission?: Yes Plan: 11/06/2018 patient is complaining of bilateral lower leg pains the pains are increasing with walking less than 5200 feet she is getting Requip at home but is not helping. I requested for arterial Doppler of the lower extremities. 11/07/2017-patient is came in With complaints of severe bilateral lower extremity pains. I requested for arterial Doppler of the lower extremities. Results are pending. - Time Time Spent with patient: 15-24 minutes Medications reviewed and adjusted accordingly: Yes Anticipated discharge: Home
[2018-11-07] MEDS: ENOXAPARIN SODIUM INJ 40 MG/0.4 ML DISP.SYRIN SUBCUT SCH (10:29)
[2018-11-07] MEDS: NORMAL SALINE 1000 ML 1,000 ML IV PRN (10:36)
--- NOTE | 2018-11-07 12:10 | EKG REPORT ---
SEVERITY:- ABNORMAL ECG - SINUS RHYTHM PAIRED VENTRICULAR PREMATURE COMPLEXES SECOND DEGREE 2:1 AV BLOCK NONSPECIFIC T ABNORMALITIES, DIFFUSE LEADS : Confirmed by: Corwin Clemente MD 07-Nov-2018 12:10:14
--- NOTE | 2018-11-07 13:19 | PDOC TRANSFER SUMMARY ---
General Admission Date/PCP: 11/06/18 16:06 RAGHAV LARES MD Resuscitation Status: Full Code - Transfer Diagnosis (1) Second degree heart block Is this a current diagnosis for this admission?: Yes Diagnosis Summary: 11/07/2018 EKGs and rhythm strips are showing first-degree heart block along with a second-degree 2 is 2 1 heart block probably Mobitz type II. Dr. Kurtz spoke to Dr. Jaimes in [facility] made arrangements for the patient to be transferred there as I mentioned in the H&P patient came in with shortness of breath and with minimal activity heart rate is going up in the 140s 150s also complained of left-sided chest pain when she came into the emergency room. On physical examination patient has systolic heart murmur most likely from aortic stenosis. (2) Chest pain, rule out acute myocardial infarction Is this a current diagnosis for this admission?: Yes Diagnosis Summary: 11/06/2018-patient came in with low blood pressure palpitations and left-sided chest pain plan to put her on telemetry telemetry monitoring started on aspirin 81 mg p.o. daily placed on atorvastatin 10 mg p.o. nightly cardiology GI consult was requested for questionable atrial fibrillation echocardiogram was requested lipid panel was requested for tomorrow cardiac enzymes x3 were requested. She was also placed on oxygen 2 L nasal cannula. I am going to put her out for nitroglycerin but 0.4 mg every 5 minutes as needed for chest pain. Going to schedule for the stress test tomorrow. 11/07/2018-patient came in with left-sided chest pain low blood pressures and palpitations and her troponins are negative and echocardiogram shows EF of 60% but the EKG shows first-degree heart block along with second-degree heart block to 2 to 1 ratio most likely Mobitz type II so patient was going to [facility] for further management. Be going to stop her metoprolol and continue the prophylaxis with Lovenox. (3) Hypotension Is this a current diagnosis for this admission?: Yes Diagnosis Summary: 11/06/2018-patient was hypotensive when she came to the emergency room systolic blood pressure in the 90s with heart rate of more than 120 she was given 1 L of fluid in the ER still blood pressure at the time of my examination is 95/70. But rate is around 110. Plan to continue IV fluids at 75 cc/h. We are going to watch for the fluid overload. Hypertension may be secondary to poor oral intake. 11/07/2018-patient came in with hypotension she got more than a liter of fluid in the emergency room initial blood pressure was 190/60 with fluids it was improved to 95/70 at the time of admission IV fluids are continued at the rate of 50 cc/h her blood pressure this morning is 102/62 she is still tachycardic at rest with heart rate is 110s and with activity minimal activity heart rate is going up to 140s cardiology consult was requested and as I mentioned above patient is going to [facility] for further management. (4) Palpitation Is this a current diagnosis for this admission?: Yes Diagnosis Summary: 11/07/2018-this morning EKG shows junctional rhythm and follow-up EKGs indicates first-degree heart block along with second-degree heart block with 2 used to 1 ratio most likely Mobitz type II. She was given a dose of digoxin 0.25 mcg this morning without much success. (5) History of colon resection Is this a current diagnosis for this admission?: Yes Diagnosis Summary: 11/06/2018-patient is given the history of colon resection near complete colonic resection secondary to severe continuous GI bleed of unknown cause as per the family the exact reason for bleed from the lower GI is unknown. No complaints of blood in the stool this time. 11/07/2018 plan is to continue the present management. (6) Hyperlipemia Is this a current diagnosis for this admission?: Yes Diagnosis Summary: 11/06/2018-patient is giving history of hyperlipidemia with elevated LDL and also high HDL. She was placed on atorvastatin 40 mg p.o. nightly. I am going to check a lipid panel tomorrow. 11/07/2018-patient lipid panel shows elevated cholesterol and low HDL with e levated LDL she is on atorvastatin 40 mg p.o. daily. (7) Leg pain, bilateral Is this a current diagnosis for this admission?: Yes - Transfer Medications Home Medications: Ergocalciferol (Vitamin D2) [Drisdol 50,000 Unit (1.25MG) Capsule] 50,000 unit PO SANCHEZ@1000 11/06/18 Esomeprazole Magnesium [Nexium 24Hr] 20 mg PO BID 11/06/18 Fenofibrate Nanocrystallized [Tricor 48 mg Tablet] 48 mg PO QHS 11/06/18 Hydrochlorothiazide [Hydrodiuril 12.5 mg Tablet] 12.5 mg PO DAILY 11/06/18 Loratadine [Allergy] 10 mg PO DAILY 11/06/18 Metoprolol Succinate [Toprol Xl 25 mg Tab.sr] 25 mg PO DAILY 11/06/18 Pramipexole Di-HCl [Pramipexole Dihydrochloride] 1 mg PO QHS 11/06/18 Transfer Medications: Current Medications Aspirin (Aspirin 81 Mg Chewable Tablet) 81 mg PO DAILY [facility] Stop: 12/07/18 09:59 Last Admin: 11/07/18 10:36 Dose: 81 mg Documented by: Atorvastatin Calcium (Lipitor 40 Mg Tablet) 40 mg PO QHS [facility] Stop: 12/07/18 09:59 Last Admin: 11/07/18 10:36 Dose: 40 mg Documented by: Cholecalciferol (Vitamin D3 1000 Unit Tablet) 5,000 unit PO ACBRKFST [facility] Stop: 12/07/18 07:59 Last Admin: 11/07/18 10:42 Dose: Not Given Documented by: Enoxaparin Sodium (Lovenox Inj 40 Mg/0.4 Ml Disp.Syrin) 40 mg SUBCUT DAILY [facility] Stop: 12/06/18 16:59 Last Admin: 11/07/18 10:29 Dose: Not Given Documented by: Ergocalciferol (Drisdol 50,000 Unit (1.25mg) Capsule) 50,000 unit PO SANCHEZ@1000 [facility] Stop: 12/08/18 09:59 Fenofibrate (Tricor 48 Mg Tablet) 48 mg PO QHS [facility] Stop: 12/07/18 21:59 Sodium Chloride (Nacl 0.9% 1000 Ml Iv Soln) 1,000 mls @ 50 mls/hr IV CONTINUOUS PRN PRN Reason: THIS MED IS NOT "PRN" Stop: 12/06/18 15:52 Last Admin: 11/07/18 10:36 Dose: 50 mls/hr Documented by: Lansoprazole (Prevacid 30 Mg Odt Tablet) 30 mg PO Q6AM [facility] Stop: 12/07/18 05:59 Last Admin: 11/07/18 05:02 Dose: Not Given Documented by: Loratadine (Claritin 10 Mg Tablet) 10 mg PO DAILY [facility] Stop: 12/07/18 09:59 Last Admin: 11/07/18 10:36 Dose: 10 mg Documented by: Metoprolol Succinate (Toprol Xl 50 Mg Tab.Sr) 50 mg PO QHS [facility] Stop: 12/06/18 21:59 Last Admin: 11/06/18 22:13 Dose: Not Given Documented by: Metoprolol Succinate (Toprol Xl 25 Mg Tab.Sr) 25 mg PO DAILY [facility] Stop: 12/07/18 09:59 Last Admin: 11/07/18 10:37 Dose: 25 mg Documented by: Metoprolol Tartrate (Lopressor Inj/Pf 5 Mg/5 Ml Sdv) 5 mg IV PRN PRN PRN Reason: GIVE FOR HR > [] Stop: 12/06/18 15:57 Pramipexole Dihydrochloride (Mirapex 0.5 Mg Tablet) 0.5 mg PO QHS [facility] Stop: 12/06/18 21:59 Last Admin: 11/06/18 22:12 Dose: 0.5 mg Documented by: Pramipexole Dihydrochloride (Mirapex 0.5 Mg Tablet) 1 mg PO QHS [facility] Stop: 12/07/18 21:59 Sodium Chloride (Saline Flush 2.5 Ml Monoject Prefil Syrin) 2.5 ml IV Q8 [facility] Stop: 12/06/18 21:59 Last Admin: 11/07/18 05:02 Dose: Not Given Documented by: - Allergies Allergies/Adverse Reactions: bimatoprost [From Lumigan] Allergy (Mild, Verified 05/11/17 09:03) IRRITATION brimonidine tartrate [From Alphagan] Allergy (Mild, Verified 05/11/17 09:03) RASH, IRRITATION niacin Adverse Reaction (Verified 05/11/17 09:03) - Diet/Activity Discharge Diet: Cardiac Physical Exam Vital Signs: Temp Pulse Resp BP Pulse Ox 97.4 F 118 H 16 118/70 96 11/07/18 07:45 11/07/18 07:45 11/07/18 07:45 11/07/18 07:45 11/07/18 07:45 Intake & Output 11/06/18 11/07/18 11/08/18 06:59 06:59 06:59 Intake Total 1220 604 Balance 1220 604 Weight 73.8 kg General appearance: PRESENT: mild distress Head exam: PRESENT: atraumatic Eye exam: PRESENT: PERRLA Mouth exam: PRESENT: moist Neck exam: ABSENT: carotid bruit, JVD, lymphadenopathy, thyromegaly Cardiovascular exam: PRESENT: irregular rhythm, systolic murmur, tachycardia Musculoskeletal exam: PRESENT: ambulatory Neurological exam: PRESENT: alert, awake, oriented to person, oriented to place, oriented to time, oriented to situation, CN II-XII grossly intact. ABSENT: motor sensory deficit Psychiatric exam: PRESENT: appropriate affect, normal mood. ABSENT: homicidal ideation, suicidal ideation Results Laboratory Results: 11/07/18 04:25 11/07/18 04:25 11/07/18 11/07/18 04:25 04:25 WBC 6.0 RBC 4.16 Hgb 11.9 L Hct 35.7 L MCV 86 MCH 28.6 MCHC 33.4 RDW 14.0 Plt Count 117 L Seg Neutrophils % 55.4 Lymphocytes % 29.6 Monocytes % 11.8 Eosinophils % 2.7 Basophils % 0.5 Absolute Neutrophils 3.3 Absolute Lymphocytes 1.8 Absolute Monocytes 0.7 Absolute Eosinophils 0.2 Absolute Basophils 0.0 Sodium 140.0 Potassium 4.3 Chloride 110 H Carbon Dioxide 23 Anion Gap 7 BUN 19 Creatinine 0.66 Est GFR ( Amer) > 60 Est GFR (Non-Af Amer) > 60 Glucose 113 H Calcium 8.5 Total Bilirubin 0.3 AST 19 ALT 28 Alkaline Phosphatase 42 Total Protein 5.8 L Albumin 3.3 L Triglycerides 191 H Cholesterol 173.50 LDL Cholesterol Direct 100 VLDL Cholesterol 38.2 H HDL Cholesterol 29 L 11/06/18 11/06/18 11/06/18 09:50 09:50 14:17 Creatine Kinase 83 CK-MB (CK-2) 1.59 Troponin I < 0.012 < 0.012 NT-Pro-B Natriuret Pep 11/06/18 11/06/18 11/06/18 14:17 14:17 14:17 Creatine Kinase 61 CK-MB (CK-2) 1.36 Troponin I Cancelled NT-Pro-B Natriuret Pep 511 H 11/06/18 11/06/18 11/07/18 19:56 19:56 04:25 Creatine Kinase 51 62 CK-MB (CK-2) 1.23 Troponin I < 0.012 NT-Pro-B Natriuret Pep 11/07/18 04:25 Creatine Kinase CK-MB (CK-2) 1.04 Troponin I < 0.012 NT-Pro-B Natriuret Pep 1690 H Impressions: Head CT 11/06/18 00:00 IMPRESSION: MILD CHRONIC CHANGES OF ATROPHY AND MICROVASCULAR ISCHEMIA. NO ACUTE PROCESS. EVIDENCE OF ACUTE STROKE: NO. Chest X-Ray 11/06/18 10:31 IMPRESSION: NO ACUTE RADIOGRAPHIC FINDING IN THE CHEST. Chest/Abdomen CTA 11/07/18 00:00 IMPRESSION: No pulmonary emboli.
--- NOTE | 2018-11-07 14:33 | PDOC CONSULTATION ---
Consultation-Blank Consultation: CARDIOLOGY CONSULTATION by Dr. Terra Kurtz on 11/07/2018. The patient was seen at 10 AM on 11/07/2018. REASON FOR CONSULTATION: Dyspnea on exertion, cardiac arrhythmia, and tachycardia. HISTORY OF PRESENT ILLNESS: Patient is a 78-year old female with known history of hypertension and hyperlipidemia, who states since a few months has been having exertional shortness of breath. The daughter states that if she walks to the mailbox which is 125 yards the patient becomes pale diaphoretic and severely short of breath and does seem to be panting. The patient also has near syncopal episodes with exertion. She also has a hot sensation and tightness in her head and also feels that heaviness in the chest as someone sitting on her chest with exertion along with shortness of breath. She has no PND orthopnea or palpitations. Patient emergency room was seen to have a short run of nonsustained wide-complex tachycardia which is regular, most likely atrial fibrillation with aberration episode. She is here on the monitor shows one episode of atrial fibrillation with a ventricular response of 120-140, and junctional tachycardia the fastest of which is about 148 bpm. Subsequently her resting EKG shows second-degree AV block with 2 is 2 1 AV block, most likely Mobitz type II, with prolonged NJ interval. Although the patient is near syncope there is no definite syncope. There is no TIA CVA symptoms. There is no leg edema. PAST MEDICAL HISTORY: The patient has a history of hypertension. There is no prior history of coronary artery disease, KS or anginal symptoms. She has no anginal symptoms. She states that she was told she had a heart murmur. She also has history of hyperlipidemia. She dyspnea on exertion as mentioned in history of present illness. Near syncopal episodes without syncope. She has no history of diabetes mellitus or thyroid disease. There is no history of TIA CVA. There is no history of chronic kidney disease. There is no history of congestive heart failure. There is no history of TIAs or CVA. No history of headaches migraines or seizures. She has no history of asthma or COPD. She in the 90s had a severe GI bleed, and subsequently ended up having a total colectomy. She said states that last year she had a cold positive stools. As per the daughter recently she has been having some dark black stools. She has no abdominal pain. PAST SURGICAL HISTORY: She has had 2 C-sections, and also has had total colectomy for a GI bleed of unknown origin. She also had corrective surgery in the in the form of removal of bony spur in her right leg. Allergies: She Is Allergic to Bimatoprost, Brimonidine, and niacin. FAMILY HISTORY: Is positive for cancer. There is no history of CAD or diabetes or hypertension. DISPOSITION: The patient is a full code. Her daughter is her surrogate healthcare decision makers. REVIEW OF SYSTEMS: Constitutional: Denies fever chills or rigors. Complains of generalized fatigue and generalized weakness. HEAD: History of tightness and warm sensation in his chest with exertion. History of dizziness present. No history of head trauma. EYES: NO HISTORY OF AMBLYOPIA DIPLOPIA NO HISTORY OF AMAUROSIS FUGAX. Ears: No history of tinnitus. No history of vertigo. No history of recurrent ear infections. No history of hearing loss. NOSE: No history of hayfever. No history of nosebleeds. No history of nasal polyps. MOUTH: No history of altered taste sensation. No history of ulcers in the mouth., And no bleeding from the gums. THROAT: No history of odynophagia or dysphagia. No history of recurrent sore throats. SKIN: No history of pruritus. No history of yellowish discoloration of the skin. No history of psoriasis. No history of skin cancer. NECK: No symptoms of C-spine arthritis. No goiter. No swelling in the neck. LUNGS: No history of asthma or COPD. No history of sleep apnea no history of pulmonary embolism. No history of pleuritic chest pain. No history of hemoptysis. No wheezing. No symptoms suggestive of upper or lower respiratory tract infections. HEART: History of hypertension present history of hyperlipidemia present. No history of coronary artery disease or KS or anginal symptoms. No leg edema. No history of PND orthopnea. Near syncope with exertion b but no history of kate syncope. ENDOCRINE: She has no history of diabetes mellitus no history of thyroid disease. RENAL: No history of chronic kidney disease. KNIFE BLADE POLISHER: No history of TIA CVA. No history of headaches migraines or seizures. PSYCHIATRIC: No history of anxiety or depression. No suicidal ideation. No homicidal ideation. GI: History of GERD present. No history of fatty food intolerance. Past history of GI bleed requiring total colectomy. Denies abdominal pain. History of black tarry stools recently. No abdominal pain. No history of jaundice. No history of ascites. No history of cirrhosis of the liver. MUSCULOSKELETAL: No history of collagen vascular disease. No history of arthritis. VASCULAR: No history of calf or buttock claudication. No history of DVT. HEMATOLOGICAL: No history of bleeding diathesis. No history of clotting disorders. Physical EXAMINATION: The patient is mildly obese. At present in no acute distress. She is well-groomed. Selected Entries 11/07/18 07:45 Temperature 97.4 F Temperature Oral Source Pulse Rate 118 H Respiratory 16 Rate Blood Pressure 118/70 Blood Pressure 86 Mean BP Location Left Arm BP Position Supine O2 Sat by Pulse 96 Oximetry Oxygen Delivery Room Air Method 11/06/18 11/06/18 11/06/18 09:50 09:50 09:50 WBC 7.1 RBC 4.87 Hgb 13.8 Hct 41.7 MCV 86 MCH 28.3 MCHC 33.0 RDW 13.8 Plt Count 130 L Sodium Potassium Chloride Carbon Dioxide Anion Gap BUN Creatinine Est GFR (Non-Af Amer) Glucose Calcium 10.1 Total Bilirubin 0.5 Direct Bilirubin 0.1 Neonat Total Bilirubin Not Reportable Neonat Direct Bilirubin Not Reportable Neonat Indirect Bili Not Reportable AST 24 ALT 19 Alkaline Phosphatase 50 Creatine Kinase 83 CK-MB (CK-2) 1.59 Troponin I < 0.012 NT-Pro-B Natriuret Pep Total Protein 7.5 Albumin 4.6 Triglycerides Cholesterol LDL Cholesterol Direct VLDL Cholesterol HDL Cholesterol HEAD: Is atraumatic normocephalic cephalic. EYES: Pupils equal round regular reactive to light and accommodation. Extraocular movements are normal. There is no clinical pallor. There is no scleral icterus. EARS: Tympanic membranes are intact. External auditory canals are clear. NOSE: No deviated nasal septum. No inflammation of the nasal mucous membrane. MOUTH: Mucous membranes of mouth are moist. Tongue is moist. There is no ulcers. There is no bleeding from the gums. THROAT: There is no redness of the oropharynx. No exudates. NECK: Neck is supple. There is no JVD. Carotids are equal with transmitted murmur from the aortic area. There is no significant carotid delay. There is no lymphadenopathy. There is no goiter. Trachea central. LUNGS: Is clear to auscultation percussion, without any rhonchi rales or wheezing. HEART: S1-S2 is heard there is no S3 gallop there is no S4 gallop there is systolic murmur of mild aortic stenosis present 82 is preserved. There is no significant carotid delay. There is no thrill. There is no S3-S4 gallops. There is no rub. 11/06/18 11/06/18 11/06/18 14:17 14:17 14:17 WBC RBC Hgb Hct MCV MCH MCHC RDW Plt Count Sodium Potassium Chloride Carbon Dioxide Anion Gap BUN Creatinine Est GFR (Non-Af Amer) Glucose Calcium Total Bilirubin Direct Bilirubin Neonat Total Bilirubin Neonat Direct Bilirubin Neonat Indirect Bili AST ALT Alkaline Phosphatase Creatine Kinase 61 CK-MB (CK-2) Troponin I < 0.012 NT-Pro-B Natriuret Pep 511 H Total Protein Albumin Triglycerides Cholesterol LDL Cholesterol Direct VLDL Cholesterol HDL Cholesterol 11/06/18 11/06/18 11/06/18 14:17 19:56 19:56 WBC RBC Hgb Hct MCV MCH MCHC RDW Plt Count Sodium Potassium Chloride Carbon Dioxide Anion Gap BUN Creatinine Est GFR (Non-Af Amer) Glucose Calcium Total Bilirubin Direct Bilirubin Neonat Total Bilirubin Neonat Direct Bilirubin Neonat Indirect Bili AST ALT Alkaline Phosphatase Creatine Kinase 51 CK-MB (CK-2) 1.36 1.23 Troponin I < 0.012 NT-Pro-B Natriuret Pep Total Protein Albumin Triglycerides Cholesterol LDL Cholesterol Direct VLDL Cholesterol HDL Cholesterol 11/07/18 11/07/18 11/07/18 04:25 04:25 04:25 WBC 6.0 RBC 4.16 Hgb 11.9 L Hct 35.7 L MCV 86 MCH 28.6 MCHC 33.4 RDW 14.0 Plt Count 117 L Sodium 140.0 Potassium 4.3 Chloride 110 H Carbon Dioxide 23 Anion Gap 7 BUN 19 Creatinine 0.66 Est GFR (Non-Af Amer) > 60 Glucose 113 H Calcium 8.5 Total Bilirubin 0.3 Direct Bilirubin 0.1 Neonat Total Bilirubin Not Reportable Neonat Direct Bilirubin Not Reportable Neonat Indirect Bili Not Reportable AST 19 ALT 28 Alkaline Phosphatase 42 Creatine Kinase 62 CK-MB (CK-2) 1.04 Troponin I < 0.012 NT-Pro-B Natriuret Pep 1690 H Total Protein 5.8 L Albumin 3.3 L Triglycerides 191 H Cholesterol 173.50 LDL Cholesterol Direct 100 VLDL Cholesterol 38.2 H HDL Cholesterol 29 L Home Meds Table Ergocalciferol (Vitamin D2) [Drisdol 50,000 unit (1.25MG) Capsule] 50,000 unit PO SANCHEZ@1000 11/06/18 Esomeprazole Magnesium [Nexium 24Hr] 20 mg PO BID 11/06/18 Fenofibrate Nanocrystallized [Tricor 48 mg Tablet] 48 mg PO QHS 11/06/18 Hydrochlorothiazide [Hydrodiuril 12.5 mg Tablet] 12.5 mg PO DAILY 11/06/18 Loratadine [Allergy] 10 mg PO DAILY 11/06/18 Metoprolol Succinate [Toprol Xl 25 mg Tab.sr] 25 mg PO DAILY 11/06/18 Pramipexole Di-HCl [Pramipexole Dihydrochloride] 1 mg PO QHS 11/06/18 11/06/18 10:31 Aspirin [Aspirin 81 mg Chewable Tablet] 324 mg PO NOW ONE 11/06/18 10:32 Normal Saline 1000 ml [NaCl 0.9% 1000 ml IV Soln] 1,000 ml IV BOLUS 11/06/18 14:50 Metoprolol Tartrate [Lopressor 25 mg Tablet] 25 mg PO NOW ONE 11/06/18 15:53 Normal Saline 1000 ml [NaCl 0.9% 1000 ml IV Soln] 1,000 ml IV CONTINUOUS 11/06/18 15:58 Metoprolol Tartrate [Lopressor Inj/Pf 5 mg/5 ml Sdv] 5 mg IV PRN PRN 11/06/18 17:00 Enoxaparin Sodium [Lovenox Inj 40 mg/0.4 ml Disp.syrin] 40 mg SUBCUT DAILY 11/06/18 22:00 Metoprolol Succinate [Toprol Xl 50 mg Tab.sr] 50 mg PO QHS Normal Saline [Saline Flush 2.5 ml Monoject Prefil Syrin] 2.5 ml IV Q8 Pramipexole Di-HCl [Mirapex 0.5 mg Tablet] 0.5 mg PO QHS 11/07/18 06:00 Lansoprazole [Prevacid 30 mg Odt Tablet] 30 mg PO Q6AM 11/07/18 08:00 Cholecalciferol (Vitamin D3) [Vitamin D3 1000 Unit Tablet] 5,000 unit PO [id number] 11/07/18 08:08 Digoxin Inj [Lanoxin Inj 0.5 mg/2 ml Ampule] 0.25 mg IV NOW ONE 11/07/18 10:00 Aspirin [Aspirin 81 mg Chewable Tablet] 81 mg PO DAILY Atorvastatin Calcium [Lipitor 40 mg Tablet] 40 mg PO QHS Loratadine [Claritin 10 mg Tablet] 10 mg PO DAILY Metoprolol Succinate [Toprol Xl 25 mg Tab.sr] 25 mg PO DAILY 11/07/18 22:00 Fenofibrate Nanocrystallized [Tricor 48 mg Tablet] 48 mg PO QHS Pramipexole Di-HCl [Mirapex 0.5 mg Tablet] 1 mg PO QHS 11/08/18 10:00 Ergocalciferol (Vitamin D2) [Drisdol 50,000 Unit (1.25MG) Capsule] 50,000 unit PO SANCHEZ@1000 The patient's chest x-ray is negative for any acute process. A pulmonary CT angiogram shows no evidence of pulmonary emboli. There is no significant pathology seen. EKG on admission so shows junctional tachycardia. Diffuse nonspecific ST-T changes minor. The patient EKG today shows 1 shows sinus rhythm. There is secondary AV block with 2-1 conduction. Most likely the patient has Mobitz type II AV block. The patient's echocardiogram: Shows normal left ventricular size, without LVH. With no wall motion abnormality, and normal ejection fraction. It also shows mild aortic stenosis with a peak gradient of 23 mmHg. [Please see report]. IMPRESSION/Recommendation: 1. Dyspnea on exertion: With associated symptoms of chest heaviness on the left front of the chest, and near syncope. Most likely secondary to patient's card iac arrhythmia. 2. Cardiac arrhythmia, with the patient's monitor strip showing junctional tachycardia rate of 149 bpm, one episode of wide-complex irregular tachycardia most likely atrial fibrillation with aberrancy, and episode of atrial fibrillation, and sinus rhythm with Mobitz type II AV block, with a prolonged NJ interval, with the 2 is to 1 AV conduction. 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 The patient most likely will need a permanent pacemaker placement prior to institution medications to slow down her heart rate. Also would recommend getting IV Lexiscan Cardiolite stress test later. 3. Mild aortic stenosis. This does not seem to be hemodynamically significant at present. 4. Mild hypertension. Continue antihypertensive medication. 5. Hyperlipidemia with low HDL levels, and elevated LDL level, which is borderline elevated. 6. Hyperlipidemia/dyslipidemia. Continue patient on statin. MEDICATION reviewed. Medications adjusted. Medical decision making is of high complexity. Note 60 minutes spent on this patient more than 50% of time spent in direct patient care. Note would strongly recommend that the patient be transferred to tertiary care CENTER since the patient most likely will need a permanent pacemaker placement. The patient then can be started on medication to keep her in sinus mechanism. This has been discussed the patient patient and family. Discussed with Dr. Jaimes, who is on-call for Replaced by [facility], in [facility]. The case has been discussed with him in depth, and he agrees to accept the patient. Will arrange transfer via the transfer center for [facility]. Discussed with the patient's attending physician. Discussed with patient and patient's family including the patient's 2 daughters. The risk benefits alternative therapeutic options and risks and complications of transfer to [facility] via is an ambulance, were discussed in detail with the patient's family. [2 sisters].
[2018-11-07 14:35] VITALS: BP 108/57
[2018-11-07] MEDS ORDERED: PRAMIPEXOLE DI-HCL 0.5 MG TABLET PO SCH (22:00)
[2018-11-07] MEDS ORDERED: (PENDING PHARMACY ID) (Pramipexole Di-Hcl [Pramipexole Dihydrochloride] 1 MG) PO SCH (22:00)
[2018-11-07] MEDS ORDERED: FENOFIBRATE NANOCRYSTALLIZED 48 MG TABLET PO SCH (22:00)
[2018-11-08] MEDS ORDERED: ERGOCALCIFEROL (VITAMIN D2) 50000 UNIT (1.25 MG) CAPSULE PO SCH (10:00)
--- NOTE | 2018-11-13 11:51 | XCELERA REPORT ---
[address] [address] Lower Extremity Arterial Evaluation Name: MEGAN ARTEAGA Age: 78 yrs Gender: Female : 1940 Patient Status: Inpatient Patient Location: [address] [place], [place] [id number] Study Date: 11/06/2018 06:26 PM Procedure: A color flow and duplex scan of the lower extremity arteries was performed bilaterally with velocity and waveform anaylsis. Reason For Study: claudication pain Ordering Physician: CAROL MADSEN Performed By: Judi Soliman Measurements and Calculations Right Left CLASSIFYING MACHINE OPERATOR PSV 68.3 81.3 cm/sec Prox PFA PSV 57.8 cm/sec Prox SFA PSV 53.4 76.6 cm/sec Mid SFA PSV 60.7 69.5 cm/sec Dist SFA PSV 52.5 57.0 cm/sec Dist Pop A PSV 60.3 51.9 cm/sec Mid JORGITO PSV 60.3 79.8 cm/sec Mid HAULAGE ENGINE OPERATOR PSV 94.7 59.4 cm/sec Kye Pedis PSV -32.2 -50.3 cm/sec Right Side Arterial Evaluation Normal velocity and triphasic waveforms noted from the Common Femoral artery to the infrageniculate vessels . Ankle Brachial index not obtained . Left Side Arterial Evaluation Normal velocity and triphasic waveforms noted from the Common Femoral artery to the infrageniculate vessels Ankle Brachial index not obtained. Interpretation Summary No hemodynamically significant lesions in the bilateral lower extremities, on duplex imaging, at rest. : CAROL MADSEN > Efraín Russell
== END 2018-11-07 14:59 | disposition short-term general hospital (02) | DRG 310 ==
LOC: ER 10:10 → EH 16:06 → 4N 20:43
PROVIDERS: ADMIT Internal Medicine; ATTEND Internal Medicine
DX: I44.1 Atrioventricular block, second degree (principal); I95.9 Hypotension, unspecified; I35.0 Nonrheumatic aortic (valve) stenosis; E78.5 Hyperlipidemia, unspecified; K21.9 Gastro-esophageal reflux disease without esophagitis; R00.0 Tachycardia, unspecified; M79.605 Pain in left leg; M79.604 Pain in right leg; Z90.49 Acquired absence of other specified parts of digestive tract
CPT/HCPCS: 36415; 70450; 71045; 71275; 80053; 80061; 82550; 82553; 83880; 84484; 85025; 93005; 93010; 93306; 93925; 96360; 96361; 99285; J1160; J3490; J7030

== ENCOUNTER 2019-07-10 08:19 | Observation (INO) | payer MEDICARE ==
[2019-07-10] MEDS ORDERED: FENTANYL CITRATE INJ/PF 100 MCG/2 ML AMPUL IV ONE (09:19)
--- NOTE | 2019-07-10 09:23 | ER Document Report ---
ED Syncope and Near Syncope - General Chief Complaint: Fall Injury Stated Complaint: FALL/BODY PAIN Time Seen by Provider: 07/10/19 08:34 Information source: Patient Notes: Patient states that she was walking outside this morning to her garden shed and then woke up on the ground. Patient states that she does not feel that she had been unconscious for a prolonged period of time. Patient with abrasion and bruising to right brow area and bruising and swelling to right forearm. Patient complains of some abrasions to bilateral knees. Patient states that prior to this syncopal episode she felt fine and that she was not having any symptoms. Patient denies any chest pain shortness of breath nausea or vomiting. Patient states she does have neck and back pain but she has chronic neck and back pain and this feels typical for her chronic pain. Patient denies any recent changes in her medications. TRAVEL OUTSIDE OF THE [place] IN LAST 30 DAYS: No - HPI Patient complains to provider of: Fainting Episode witnessed (by whom): No Symptoms prior to episode: None. No: Chest pain, Palpitations, Short of breath Position/Activity at time of episode: Activity - Walking Quality of pain: Achy Pain Level: 2 Context: Lost consciousness Injury location: Back, Face, RUE Current symptoms: Arm pain, Back pain, Neck pain. denies: Breathing difficulty, Chest pain, Dizziness, Fever Similar symptoms previously: No Recently seen / treated by doctor: No - Related Data Allergies/Adverse Reactions: bimatoprost [From Lumigan] Allergy (Mild, Verified 05/11/17 09:03) IRRITATION brimonidine tartrate [From Alphagan] Allergy (Mild, Verified 05/11/17 09:03) RASH, IRRITATION niacin Adverse Reaction (Verified 05/11/17 09:03) Past Medical History - General Information source: Patient, Relative - Social History Smoking Status: Never Smoker Chew tobacco use (# tins/day): No Frequency of alcohol use: None Drug Abuse: None Lives with: Alone Family History: Reviewed & Not Pertinent Patient has suicidal ideation: No Patient has homicidal ideation: No - Past Medical History Cardiac Medical History: Reports: Hx Hypercholesterolemia, Hx Hypertension Neurological Medical History: Denies: Hx Cerebrovascular Accident, Hx Seizures Renal/ Medical History: Denies: Hx Peritoneal Dialysis GI Medical History: Reports: Hx Gastroesophageal Reflux Disease. Denies: Hx Hepatitis, Hx Hiatal Hernia, Hx Ulcer Musculoskeletal Medical History: Reports Hx Arthritis - GENERALIZED Psychiatric Medical History: Denies: Hx Depression Infectious Medical History: Denies: Hx Hepatitis Past Surgical History: Reports: Hx Appendectomy, Hx Bowel Surgery, Hx Section, Other - Near complete colon resection - Immunizations Hx Diphtheria, Pertussis, Tetanus Vaccination: Yes Hx Pneumococcal Vaccination: 10/27/00 Review of Systems - Review of Systems Constitutional: No symptoms reported. denies: Fever, Weakness, Recent illness EENT: No symptoms reported Cardiovascular: Syncope. denies: Chest pain, Dizziness, Lightheaded Respiratory: No symptoms reported. denies: Cough, Short of breath Gastrointestinal: No symptoms reported. denies: Abdominal pain, Nausea, Vomiting Genitourinary: No symptoms reported. denies: Dysuria Female Genitourinary: No symptoms reported Musculoskeletal: Back pain, Neck pain, Other - Right forearm pain Skin: Other - Bruising to right forearm Hematologic/Lymphatic: No symptoms reported Neurological/Psychological: Lost consciousness. denies: Headaches Physical Exam - Vital signs Vitals: Temp Pulse Resp BP Pulse Ox 97.5 F 91 16 140/89 H 96 07/10/19 08:25 07/10/19 08:25 07/10/19 08:25 07/10/19 08:25 07/10/19 08:25 - General General appearance: Appears well, Alert In distress: None - HEENT Head: Abrasions - Right periorbital abrasion with tenderness and ecchymosis, Ecchymosis, Tenderness. No: Nicholson's sign, [place]'s eyes Eyes: Normal Conjunctiva: Normal Extraocular movements intact: Yes Eyelashes: Normal Pupils: PERRL Ears: Normal External canal: Normal Tympanic membrane: Normal. No: Hemotympanum Nasal: Normal Mouth/Lips: Normal Mucous membranes: Normal Neck: Supple, Other - Posterior cervical midline tenderness, no step-off or deformity. No: Lymphadenopathy - Respiratory Respiratory status: No respiratory distress Chest status: Nontender Breath sounds: Normal. No: Rales, Rhonchi, Stridor, Wheezing Chest palpation: Normal - Cardiovascular Rhythm: Regular Heart sounds: S1 appreciated, S2 appreciated Murmur: No Pulses: Normal: Radial, Posterior tibial - Abdominal Inspection: Normal Distension: No distension Bowel sounds: Normal Tenderness: Nontender Organomegaly: No organomegaly - Back Back: Vertebra tenderness - Thoracic midline tenderness T 4-9 area, lower lumbar tenderness - Extremities General upper extremity: Tender - right forearm, Normal ROM General lower extremity: Normal ROM Shoulder: Normal, Nontender Arm: Normal, Nontender Elbow: Normal, Nontender Forearm: Tender - Right forearm tenderness midshaft area with hematoma and skin tear, Deformity, Ecchymosis Wrist: Normal, Nontender Hand: Normal, Nontender Hip: Normal, Nontender Thigh: Normal, Nontender Knee: Tender, Abrasion - Abrasion overlying the anterior aspect of bilateral knees. No: Dislocation, Joint effusion, Laxity with valgus stress, Laxity with varus stress, Pain with ROM Ankle: Normal, Nontender Foot: Normal, Nontender - Neurological Neuro grossly intact: Yes Cognition: Normal Nathan Coma Scale Eye Opening: Spontaneous Nathan Coma Scale Verbal: Oriented Lehigh Coma Scale Motor: Obeys Commands Lehigh Coma Scale Total: 15 Speech: Normal Cranial nerves: Normal - Psychological Associated symptoms: Normal affect, Normal mood - Skin Skin Temperature: Warm Skin Moisture: Dry Skin Color: Normal Skin irregularity: Laceration - Right forearm Course - Re-evaluation Re-evalutation: 07/10/19 12:[address] Moulton regarding patient presentation and diagnostic evaluation. Recommends consultation with hospitalist for admission for syncope. Consulted with Dr. Mccloud regarding patient presentation. Recommends obtaining orthostatic vital signs at this time. - Vital Signs Vital signs: Temp Pulse Resp BP Pulse Ox 97.6 F 82 18 133/76 H 97 07/10/19 16:00 07/10/19 14:57 07/10/19 17:01 07/10/19 17:00 07/10/19 17:01 - Laboratory Result Diagrams: 07/10/19 09:44 07/10/19 09:44 Laboratory results interpreted by me: 07/10/19 07/10/19 07/10/19 09:44 09:44 09:50 RDW 15.4 H BUN 21 H Ur Leukocyte Esterase SMALL H Labs- Entire Visit 07/10/19 07/10/19 07/10/19 09:44 09:44 09:44 WBC 7.6 RBC 4.23 Hgb 12.0 Hct 36.3 MCV 86 MCH 28.3 MCHC 33.0 RDW 15.4 H Plt Count 198 Lymph % (Auto) 14.0 [place] % (Auto) 8.2 Eos % (Auto) 2.7 Baso % (Auto) 0.5 Absolute Neuts (auto) 5.7 Absolute Lymphs (auto) 1.1 Absolute Monos (auto) 0.6 Absolute Eos (auto) 0.2 Absolute Basos (auto) 0.0 Seg Neutrophils % 74.6 Sodium 139.9 Potassium 4.4 Chloride 104 Carbon Dioxide 28 Anion Gap 8 BUN 21 H Creatinine 0.69 Est GFR ( Amer) > 60 Est GFR (MDRD) Non-Af > 60 Glucose 108 Calcium 9.2 Magnesium 1.9 Total Bilirubin 0.3 Direct Bilirubin 0.2 Neonat Total Bilirubin Not Reportable Neonat Direct Bilirubin Not Reportable Neonat Indirect Bili Not Reportable AST 27 ALT 15 Alkaline Phosphatase 47 Troponin I < 0.012 Total Protein 6.6 Albumin 3.6 TSH Urine Color Urine Appearance Urine pH Ur Specific [place] Urine Protein Urine Glucose (UA) Urine Ketones Urine Blood Urine Nitrite Urine Bilirubin Urine Urobilinogen Ur Leukocyte Esterase Urine WBC (Auto) Urine RBC (Auto) Squamous Epi Cells Auto Urine Mucus (Auto) Urine Ascorbic Acid 07/10/19 07/10/19 09:44 09:50 WBC RBC Hgb Hct MCV MCH MCHC RDW Plt Count Lymph % (Auto) [place] % (Auto) Eos % (Auto) Baso % (Auto) Absolute Neuts (auto) Absolute Lymphs (auto) Absolute Monos (auto) Absolute Eos (auto) Absolute Basos (auto) Seg Neutrophils % Sodium Potassium Chloride Carbon Dioxide Anion Gap BUN Creatinine Est GFR ( Amer) Est GFR (MDRD) Non-Af Glucose Calcium Magnesium Total Bilirubin Direct Bilirubin Neonat Total Bilirubin Neonat Direct Bilirubin Neonat Indirect Bili AST ALT Alkaline Phosphatase Troponin I Total Protein Albumin TSH 2.39 Urine Color YELLOW Urine Appearance CLEAR Urine pH 5.0 Ur Specific [place] 1.025 Urine Protein NEGATIVE Urine Glucose (UA) NEGATIVE Urine Ketones NEGATIVE Urine Blood NEGATIVE Urine Nitrite NEGATIVE Urine Bilirubin NEGATIVE Urine Urobilinogen NEGATIVE Ur Leukocyte Esterase SMALL H Urine WBC (Auto) 3 Urine RBC (Auto) 2 Squamous Epi Cells Auto 2 Urine Mucus (Auto) OCC Urine Ascorbic Acid NEGATIVE - Diagnostic Test Radiology reviewed: Reports reviewed - EKG Interpretation by Me EKG shows normal: Sinus rhythm Rate: Normal When compared to previous EKG there are: No significant change Additional EKG results interpreted by me: 07/10/19 12:28 Patient with T wave inversion in lead III which has been present on previous EKGs in the past. QTc 403 07/10/19 12:28 Discharge - Discharge Clinical Impression: Skin tear Syncope Qualifiers: Syncope type: unspecified Qualified Code(s): R55 - Syncope and collapse Facial hematoma Qualifiers: Encounter type: initial encounter Qualified Code(s): S00.83XA - Contusion of other part of head, initial encounter Traumatic hematoma of forearm Qualifiers: Encounter type: initial encounter Laterality: right Qualified Code(s): S50.11XA - Contusion of right forearm, initial encounter Condition: Stable Disposition: ADMITTED OBSERVATION Admitting Provider: Kim (Hospitalist) Unit Admitted: Telemetry
[2019-07-10 10:06] LABS: ABSOLUTE EOSINOPHILS # (AUTO) 0.2 10^3/uL (0.0-0.6); ABSOLUTE LYMPHOCYTES (AUTO) 1.1 10^3/uL (0.5-4.7); ABSOLUTE MONOCYTES (AUTO) 0.6 10^3/uL (0.1-1.4); ABSOLUTE NEUT (AUTO) 5.7 10^3/uL (1.7-8.2); BASOPHILS % (AUTO) 0.5 % (0-2); EOSINOPHILS % (AUTO) 2.7 % (0-6); HEMATOCRIT 36.3 % (36.0-47.0); MEAN CORPUSCULAR HEMOGLOBIN 28.3 pg (27.0-33.4); MEAN CORPUSCULAR VOLUME 86 fl (80-97); MONOCYTES % (AUTO) 8.2 % (3-13); PLATELET COUNT 198 10^3/uL (150-450); RED BLOOD COUNT 4.23 10^6/uL (3.72-5.28); RED CELL DISTRIBUTION WIDTH 15.4 % (11.5-14.0); SEGMENTED NEUTROPHILS % (AUTO) 74.6 % (42-78); TOTAL CELLS COUNTED % (AUTO) 100 %; WHITE BLOOD COUNT 7.6 10^3/uL (4.0-10.5)
--- NOTE | 2019-07-10 10:25 | RADIOLOGY REPORT (SQ) ---
EXAM DESCRIPTION: CT CERVICAL SPINE WITHOUT; CT FACIAL AREA WITHOUT; CT HEAD WITHOUT COMPLETED DATE/TIME: 07/10/2019 10:14 am REASON FOR STUDY: fall, syncope, r periorbital injury COMPARISON: See below. TECHNIQUE: Axial images acquired through the brain, facial bones, cervical spine without intravenous contrast. Images reviewed with brain, subdural, lung, soft tissue and bone windows. Reconstructed coronal and sagittal MPR images reviewed. Images stored on PACS. All CT scanners at this facility use dose modulation, iterative reconstruction, and/or weight based d osing when appropriate to reduce radiation dose to as low as reasonably achievable (ALARA). [facility]: Dose Right [facility]: CareDose [facility]: Dose Right [facility]: Teradose 4D [facility]: [employer] RADIATION DOSE: CT Rad equipment meets quality standard of care and radiation dose reduction techniq ues were employed. CTDIvol: 21.5 mGy. DLP: 420 mGy-cm.; CT Rad equipment meets quality standard of ca re and radiation dose reduction techniques were employed. CTDIvol: 30.4 mGy. DLP: 517 mGy-cm.; CT Rad equipment meets quality standard of care and radiation dose reduction techniques were employed. CTDI vol: 53.2 mGy. DLP: 1070 mGy-cm. mGy. LIMITATIONS: None. FINDINGS: Brain 2019 comparison. Right frontal scalp hematoma without underlying fracture. No acute intracranial ab normality. Mild small vessel disease. No hydrocephalus. Mild sphenoid sinus mucosal thickening. Face No facial fracture. Orbits intact. Cervical spine 2013 comparison. Osteopenic. 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 No fr acture or malalignment. Soft tissues normal. IMPRESSION: 1. Soft tissue injury right frontal scalp. 2. No acute intracranial abnormality. 3. No facial fracture. 4. No cervical spine fracture or malalignment. TECHNICAL DOCUMENTATION: JOB ID: [id number] Quality ID # [id number]: Final reports with documentation of one or more dose reduction techniques (e.g., Au tomated exposure control, adjustment of the mA and/or kV according to patient size, use of iterative reconstruction technique) 2010 [employer]- All Rights Reserved Reading location - IP/workstation name: [email or web address]
--- NOTE | 2019-07-10 10:25 | RADIOLOGY REPORT (SQ) ---
EXAM DESCRIPTION: CT CERVICAL SPINE WITHOUT; CT FACIAL AREA WITHOUT; CT HEAD WITHOUT COMPLETED DATE/TIME: 07/10/2019 10:14 am REASON FOR STUDY: fall, syncope, r periorbital injury COMPARISON: See below. TECHNIQUE: Axial images acquired through the brain, facial bones, cervical spine without intravenous contrast. Images reviewed with brain, subdural, lung, soft tissue and bone windows. Reconstructed coronal and sagittal MPR images reviewed. Images stored on PACS. All CT scanners at this facility use dose modulation, iterative reconstruction, and/or weight based d osing when appropriate to reduce radiation dose to as low as reasonably achievable (ALARA). [facility]: Dose Right [facility]: CareDose [facility]: Dose Right [facility]: Teradose 4D [facility]: [employer] RADIATION DOSE: CT Rad equipment meets quality standard of care and radiation dose reduction techniq ues were employed. CTDIvol: 21.5 mGy. DLP: 420 mGy-cm.; CT Rad equipment meets quality standard of ca re and radiation dose reduction techniques were employed. CTDIvol: 30.4 mGy. DLP: 517 mGy-cm.; CT Rad equipment meets quality standard of care and radiation dose reduction techniques were employed. CTDI vol: 53.2 mGy. DLP: 1070 mGy-cm. mGy. LIMITATIONS: None. FINDINGS: Brain 2019 comparison. Right frontal scalp hematoma without underlying fracture. No acute intracranial ab normality. Mild small vessel disease. No hydrocephalus. Mild sphenoid sinus mucosal thickening. Face No facial fracture. Orbits intact. Cervical spine 2013 comparison. Osteopenic. 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 No fr acture or malalignment. Soft tissues normal. IMPRESSION: 1. Soft tissue injury right frontal scalp. 2. No acute intracranial abnormality. 3. No facial fracture. 4. No cervical spine fracture or malalignment. TECHNICAL DOCUMENTATION: JOB ID: [id number] Quality ID # [id number]: Final reports with documentation of one or more dose reduction techniques (e.g., Au tomated exposure control, adjustment of the mA and/or kV according to patient size, use of iterative reconstruction technique) 2010 [employer]- All Rights Reserved Reading location - IP/workstation name: [email or web address]
--- NOTE | 2019-07-10 10:25 | RADIOLOGY REPORT (SQ) ---
EXAM DESCRIPTION: CT CERVICAL SPINE WITHOUT; CT FACIAL AREA WITHOUT; CT HEAD WITHOUT COMPLETED DATE/TIME: 07/10/2019 10:14 am REASON FOR STUDY: fall, syncope, r periorbital injury COMPARISON: See below. TECHNIQUE: Axial images acquired through the brain, facial bones, cervical spine without intravenous contrast. Images reviewed with brain, subdural, lung, soft tissue and bone windows. Reconstructed coronal and sagittal MPR images reviewed. Images stored on PACS. All CT scanners at this facility use dose modulation, iterative reconstruction, and/or weight based d osing when appropriate to reduce radiation dose to as low as reasonably achievable (ALARA). [facility]: Dose Right [facility]: CareDose [facility]: Dose Right [facility]: Teradose 4D [facility]: [employer] RADIATION DOSE: CT Rad equipment meets quality standard of care and radiation dose reduction techniq ues were employed. CTDIvol: 21.5 mGy. DLP: 420 mGy-cm.; CT Rad equipment meets quality standard of ca re and radiation dose reduction techniques were employed. CTDIvol: 30.4 mGy. DLP: 517 mGy-cm.; CT Rad equipment meets quality standard of care and radiation dose reduction techniques were employed. CTDI vol: 53.2 mGy. DLP: 1070 mGy-cm. mGy. LIMITATIONS: None. FINDINGS: Brain 2019 comparison. Right frontal scalp hematoma without underlying fracture. No acute intracranial ab normality. Mild small vessel disease. No hydrocephalus. Mild sphenoid sinus mucosal thickening. Face No facial fracture. Orbits intact. Cervical spine 2013 comparison. Osteopenic. 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 No fr acture or malalignment. Soft tissues normal. IMPRESSION: 1. Soft tissue injury right frontal scalp. 2. No acute intracranial abnormality. 3. No facial fracture. 4. No cervical spine fracture or malalignment. TECHNICAL DOCUMENTATION: JOB ID: [id number] Quality ID # [id number]: Final reports with documentation of one or more dose reduction techniques (e.g., Au tomated exposure control, adjustment of the mA and/or kV according to patient size, use of iterative reconstruction technique) 2010 [employer]- All Rights Reserved Reading location - IP/workstation name: [email or web address]
[2019-07-10 10:36] LABS: ALBUMIN 3.6 g/dL (3.5-5.0); ALKALINE PHOSPHATASE 47 U/L (38-126); ANION GAP 8 (5-19); ASPARTATE AMINO TRANSFERASE 27 U/L (14-36); BILIRUBIN,DIRECT 0.2 mg/dL (0.0-0.4); BILIRUBIN,TOTAL 0.3 mg/dL (0.2-1.3); BLOOD UREA NITROGEN 21 mg/dL (7-20); CALCIUM 9.2 mg/dL (8.4-10.2); CARBON DIOXIDE 28 mmol/L (22-30); CHLORIDE 104 mmol/L (98-107); GLUCOSE 108 mg/dL (75-110); POTASSIUM 4.4 mmol/L (3.6-5.0); TOTAL PROTEIN 6.6 g/dL (6.3-8.2)
--- NOTE | 2019-07-10 10:37 | RADIOLOGY REPORT (SQ) ---
EXAM DESCRIPTION: CHEST 2 VIEWS; T SPINE AP/LAT; L SPINE WHOLE; FOREARM RIGHT COMPLETED DATE/TIME: 07/10/2019 10:26 am; 07/10/2019 10:27 am REASON FOR STUDY: fall, syncope; syncope, back pain; fall, syncope, r forearm injury COMPARISON: See below. FINDINGS: Two view chest: 11/06/2018 comparison. Clear lungs. No pneumothorax. Stable cardiomedia stinal silhouette. Osteopenic and kyphotic without suggestion of acute fracture. Two views right forearm: Osteopenic. Dorsal soft tissue swelling without radiopaque foreign body. No fracture. No elbow effusion. Carpus grossly intact. Two view thoracic spine: Osteopenic and kyphotic without gross fracture. Four view lumbar spine: Includes AP, bilateral oblique and cross-table lateral. Osteopenic without fracture or malalignment. Discs are relatively preserved. No pars defect. TECHNICAL DOCUMENTATION: JOB ID: [id number] Reading location - IP/workstation name: [email or web address]
--- NOTE | 2019-07-10 10:37 | RADIOLOGY REPORT (SQ) ---
EXAM DESCRIPTION: CHEST 2 VIEWS; T SPINE AP/LAT; L SPINE WHOLE; FOREARM RIGHT COMPLETED DATE/TIME: 07/10/2019 10:26 am; 07/10/2019 10:27 am REASON FOR STUDY: fall, syncope; syncope, back pain; fall, syncope, r forearm injury COMPARISON: See below. FINDINGS: Two view chest: 11/06/2018 comparison. Clear lungs. No pneumothorax. Stable cardiomedia stinal silhouette. Osteopenic and kyphotic without suggestion of acute fracture. Two views right forearm: Osteopenic. Dorsal soft tissue swelling without radiopaque foreign body. No fracture. No elbow effusion. Carpus grossly intact. Two view thoracic spine: Osteopenic and kyphotic without gross fracture. Four view lumbar spine: Includes AP, bilateral oblique and cross-table lateral. Osteopenic without fracture or malalignment. Discs are relatively preserved. No pars defect. TECHNICAL DOCUMENTATION: JOB ID: [id number] Reading location - IP/workstation name: [email or web address]
--- NOTE | 2019-07-10 10:37 | RADIOLOGY REPORT (SQ) ---
EXAM DESCRIPTION: CHEST 2 VIEWS; T SPINE AP/LAT; L SPINE WHOLE; FOREARM RIGHT COMPLETED DATE/TIME: 07/10/2019 10:26 am; 07/10/2019 10:27 am REASON FOR STUDY: fall, syncope; syncope, back pain; fall, syncope, r forearm injury COMPARISON: See below. FINDINGS: Two view chest: 11/06/2018 comparison. Clear lungs. No pneumothorax. Stable cardiomedia stinal silhouette. Osteopenic and kyphotic without suggestion of acute fracture. Two views right forearm: Osteopenic. Dorsal soft tissue swelling without radiopaque foreign body. No fracture. No elbow effusion. Carpus grossly intact. Two view thoracic spine: Osteopenic and kyphotic without gross fracture. Four view lumbar spine: Includes AP, bilateral oblique and cross-table lateral. Osteopenic without fracture or malalignment. Discs are relatively preserved. No pars defect. TECHNICAL DOCUMENTATION: JOB ID: [id number] Reading location - IP/workstation name: [email or web address]
--- NOTE | 2019-07-10 10:37 | RADIOLOGY REPORT (SQ) ---
EXAM DESCRIPTION: CHEST 2 VIEWS; T SPINE AP/LAT; L SPINE WHOLE; FOREARM RIGHT COMPLETED DATE/TIME: 07/10/2019 10:26 am; 07/10/2019 10:27 am REASON FOR STUDY: fall, syncope; syncope, back pain; fall, syncope, r forearm injury COMPARISON: See below. FINDINGS: Two view chest: 11/06/2018 comparison. Clear lungs. No pneumothorax. Stable cardiomedia stinal silhouette. Osteopenic and kyphotic without suggestion of acute fracture. Two views right forearm: Osteopenic. Dorsal soft tissue swelling without radiopaque foreign body. No fracture. No elbow effusion. Carpus grossly intact. Two view thoracic spine: Osteopenic and kyphotic without gross fracture. Four view lumbar spine: Includes AP, bilateral oblique and cross-table lateral. Osteopenic without fracture or malalignment. Discs are relatively preserved. No pars defect. TECHNICAL DOCUMENTATION: JOB ID: [id number] Reading location - IP/workstation name: [email or web address] [email or web address]
[2019-07-10 10:41] LABS: APPEARANCE,URINE CLEAR; BILIRUBIN,URINE NEGATIVE (NEGATIVE); COLOR,URINE YELLOW; GLUCOSE, URINE NEGATIVE (NEGATIVE); KETONES,URINE NEGATIVE (NEGATIVE); LEUKOCYTE ESTERASE,URINE SMALL (NEGATIVE); NITRITE,URINE NEGATIVE (NEGATIVE); PROTEIN,URINE NEGATIVE (NEGATIVE); URINE SPECIFIC GRAVITY 1.025; UROBILINOGEN,URINE NEGATIVE mg/dL (<2.0)
[2019-07-10] MEDS ORDERED: NORMAL SALINE 500 ML IV ONE (12:25)
[2019-07-10] MEDS ORDERED: CELECOXIB 100 MG CAPSULE PO PRN (16:10)
--- NOTE | 2019-07-10 16:19 | PDOC H&P ---
History of Present Illness Admission Date/PCP: DUANE ALMODOVAR MD History of Present Illness: MEGAN ARTEAGA is a 79 year old female with a past medical history of hypertension, hyperlipidemia, history of colon resection, history of Mobitz type II, prior pacemaker placement in October 2018 for significant bradycardia was brought in after a questionable syncope. Patient says she has been apparently fine until early this morning when she was walking on the sidewalk and fell the ground sustaining a hematoma on the head and the right arm. She is not able to tell us the circumstances of her fall. She says she is not sure if she tripped or if she just lost her balance. She says she is not sure if she syncopized but she thinks that she did not lose consciousness. Denies fecal or urinary incontinence. She says she did not feel any dizziness or palpitations prior to the episode. She denies she lost consciousness. She did say she took a muscle relaxant yesterday and this morni ng. Her friend at bedside says she had a few episodes of easily getting winded in the past few weeks. Past Medical History Cardiac Medical History: Reports: Hyperlipidema Denies: Coronary Artery Disease, Myocardial Infarction, Hypertension Pulmonary Medical History: Denies: Asthma, Bronchitis, Chronic Obstructive Pulmonary Disease (COPD), Pneumonia Neurological Medical History: Denies: Seizures GI Medical History: Reports: Gastroesophageal Reflux Disease Denies: Hepatitis, Hiatal Hernia Musculoskeltal Medical History: Reports: Arthritis - GENERALIZED Psychiatric Medical History: Denies: Depression Hematology: Denies: Anemia, Sickle Cell Disease Past Surgical History Past Surgical History: Reports: Appendectomy, Section, Other - Near complete colon resection Denies: Amputation, Hysterectomy, Mastectomy, Pacemaker Social History Smoking Status: Never Smoker Frequency of Alcohol Use: None Hx Recreational Drug Use: No Drugs: None Hx Prescription Drug Abuse: No Family History Family History: Reviewed & Not Pertinent Parental Family History Reviewed: Yes - No premature CAD Children Family History Reviewed: No Sibling(s) Family History Reviewed.: No Medication/Allergy Home Medications: Ergocalciferol (Vitamin D2) [Drisdol 50,000 Unit (1.25MG) Capsule] 50,000 unit PO SANCHEZ@1000 11/06/18 Esomeprazole Magnesium [Nexium 24Hr] 20 mg PO BID 11/06/18 Fenofibrate Nanocrystallized [Tricor 48 mg Tablet] 48 mg PO QHS 11/06/18 Hydrochlorothiazide [Hydrodiuril 12.5 mg Tablet] 12.5 mg PO DAILY 11/06/18 Metoprolol Succinate [Toprol Xl 25 mg Tab.sr] 25 mg PO Q12 11/06/18 Celecoxib 100 mg PO Q12HP PRN 07/10/19 Cetirizine HCl [Zyrtec 10 mg Tablet] 10 mg PO DAILY 07/10/19 Cyclobenzaprine HCl [Flexeril 5 mg Tablet] 5 mg PO Q12 07/10/19 Ferrous Sulfate [Feosol 325 mg Tablet] 325 mg PO BID 07/10/19 Fluticasone/Vilanterol [Breo Ellipta 200-25 Mcg INH] 1 inh IH DAILY 07/10/19 Pravastatin Sodium 10 mg PO QHS 07/10/19 Allergies/Adverse Reactions: bimatoprost [From [place]] Allergy (Mild, Verified 05/11/17 09:03) IRRITATION brimonidine tartrate [From Alphagan] Allergy (Mild, Verified 05/11/17 09:03) RASH, IRRITATION niacin Adverse Reaction (Verified 05/11/17 09:03) Review of Systems All systems: reviewed and no additional remarkable complaints except as stated - As mentioned in HPI Physical Exam Vital Signs: Temp Pulse Resp BP Pulse Ox 97.5 F 91 19 140/89 H 97 07/10/19 08:25 07/10/19 08:25 07/10/19 10:27 07/10/19 08:25 07/10/19 10:27 Intake & Output 07/09/19 07/10/19 07/11/19 06:59 06:59 06:59 Weight 160 lb General appearance: PRESENT: no acute distress, well-developed, well-nourished Head exam: PRESENT: atraumatic, normocephalic, other - Hematoma right temporal parietal area Eye exam: PRESENT: conjunctiva pink, EOMI, PERRLA. ABSENT: scleral icterus Ear exam: PRESENT: normal external ear exam Mouth exam: PRESENT: moist, tongue midline Neck exam: ABSENT: carotid bruit, JVD, lymphadenopathy, thyromegaly Respiratory exam: PRESENT: clear to auscultation aline. ABSENT: rales, rhonchi, wheezes Cardiovascular exam: PRESENT: RRR. ABSENT: diastolic murmur, rubs, systolic murmur Pulses: PRESENT: normal dorsalis pedis pul GI/Abdominal exam: PRESENT: normal bowel sounds, soft. ABSENT: distended, guarding, mass, organolmegaly, rebound, tenderness Rectal exam: PRESENT: deferred Neurological exam: PRESENT: alert, awake, oriented to person, oriented to place, oriented to time, oriented to situation, CN II-XII grossly intact. ABSENT: motor sensory deficit Skin exam: PRESENT: dry, intact, warm. ABSENT: cyanosis, rash Results Laboratory Results: 07/10/19 09:44 07/10/19 09:44 07/10/19 07/10/19 07/10/19 09:44 09:44 09:50 WBC 7.6 RBC 4.23 Hgb 12.0 Hct 36.3 MCV 86 MCH 28.3 MCHC 33.0 RDW 15.4 H Plt Count 198 Seg Neutrophils % 74.6 Sodium 139.9 Potassium 4.4 Chloride 104 Carbon Dioxide 28 Anion Gap 8 BUN 21 H Creatinine 0.69 Est GFR ( Amer) > 60 Glucose 108 Calcium 9.2 Magnesium 1.9 Total Bilirubin 0.3 AST 27 Alkaline Phosphatase 47 Total Protein 6.6 Albumin 3.6 Urine Color YELLOW Urine Appearance CLEAR Urine pH 5.0 Ur Specific [place] 1.025 Urine Protein NEGATIVE Urine Glucose (UA) NEGATIVE Urine Ketones NEGATIVE Urine Blood NEGATIVE Urine Nitrite NEGATIVE Ur Leukocyte Esterase SMALL H Urine WBC (Auto) 3 Urine RBC (Auto) 2 07/10/19 09:44 Troponin I < 0.012 Impressions: Cervical Spine CT 07/10/19 09:18 IMPRESSION: 1. Soft tissue injury right frontal scalp. 2. No acute intracranial abnormality. 3. No facial fracture. 4. No cervical spine fracture or malalignment. Facial Bones CT 07/10/19 09:18 IMPRESSION: 1. Soft tissue injury right frontal scalp. 2. No acute intracranial abnormality. 3. No facial fracture. 4. No cervical spine fracture or malalignment. Head CT 07/10/19 09:18 IMPRESSION: 1. Soft tissue injury right frontal scalp. 2. No acute intracranial abnormality. 3. No facial fracture. 4. No cervical spine fracture or malalignment. Assessment and Plan - Diagnosis (1) Fall Is this a current diagnosis for this admission?: Yes Plan: Trauma work-up has been unremarkable. (2) Pre-syncope Is this a current diagnosis for this admission?: Yes Plan: Patient unable to give a good history if she actually syncopized which he said she does not think she lost consciousness. Possibility that intake of muscle relaxants might have been related to her fall. Regardless, we will have her pacemaker interrogated. We will check orthostatic vital signs. Also check carotid Doppler. (3) Hypertension Is this a current diagnosis for this admission?: Yes Plan: Resume home meds depending on orthostatic blood pressures. (4) History of colon resection Is this a current diagnosis for this admission?: Yes - Time Time Spent with patient: 25-34 minutes
--- NOTE | 2019-07-10 16:20 | ADVANCED CARE ---
- Diagnosis (1) Pre-syncope Diagnosis Current: Yes (2) Fall Diagnosis Current: Yes (3) Facial hematoma Diagnosis Current: Yes (4) Hypertension Diagnosis Current: Yes (5) Traumatic hematoma of forearm Diagnosis Current: Yes Resuscitation Status: Full Code Discussion: Patient says that she is a full code for now and prefers to receive chest compressions, defibrillation or mechanical ventilation if the need arises. She does verbalize she does not want to be on prolonged ventilation support. She says that her daughter, Radha Mcfadden is her surrogate medical decision maker.
[2019-07-10] MEDS ORDERED: (PENDING PHARMACY ID) (Esomeprazole Magnesium [Nexium 24hr] 20 MG) PO SCH (18:00)
--- NOTE | 2019-07-10 19:46 | EKG REPORT ---
SEVERITY:- BORDERLINE ECG - SINUS RHYTHM BORDERLINE T ABNORMALITIES, INFERIOR LEADS : Confirmed by: Terra Kurtz MD 10-Jul-2019 19:45:21
[2019-07-10] MEDS: KETOROLAC TROMETHAMINE INJ/PF 30 MG/1 ML SDV IV PRN (21:27)
[2019-07-10] MEDS: FERROUS SULFATE 325 MG TABLET PO SCH (21:29)
[2019-07-10] MEDS: PANTOPRAZOLE SODIUM 20 MG TABLET.DR PO SCH (21:30)
[2019-07-10] MEDS: NORMAL SALINE 1000 ML 1,000 ML IV PRN (21:38)
[2019-07-10] MEDS: HEPARIN SOD (PORCINE) 5,000 UNIT/ML 1 ML VIAL SUBCUT SCH (21:39)
[2019-07-10] MEDS: METOPROLOL SUCCINATE 25 MG TAB.SR.24H PO SCH (21:48)
[2019-07-10] MEDS: FENOFIBRATE NANOCRYSTALLIZED 48 MG TABLET PO SCH (21:49)
[2019-07-10] MEDS ORDERED: (PENDING PHARMACY ID) (Pravastatin Sodium [Pravastatin Sodium] 10 MG) PO SCH (22:00)
--- NOTE | 2019-07-11 08:18 | RADIOLOGY REPORT (SQ) ---
EXAM DESCRIPTION: KNEE RIGHT 4 VIEWS COMPLETED DATE/TIME: 07/10/2019 8:39 pm REASON FOR STUDY: pain COMPARISON: None. NUMBER OF VIEWS: Four views right knee LIMITATIONS: None. FINDINGS: Osteopenic. Mild medial compartment joint space narrowing with osteophytes. No fracture. No effusion. OTHER: No other significant finding. IMPRESSION: DJD. TECHNICAL DOCUMENTATION: JOB ID: [id number] Reading location - IP/workstation name: [email or web address]
[2019-07-11] MEDS: METOPROLOL SUCCINATE 25 MG TAB.SR.24H PO SCH (09:47)
[2019-07-11] MEDS: FERROUS SULFATE 325 MG TABLET PO SCH ×2 (09:47→17:35)
[2019-07-11] MEDS: PANTOPRAZOLE SODIUM 20 MG TABLET.DR PO SCH ×2 (09:47→21:14)
[2019-07-11] MEDS: HEPARIN SOD (PORCINE) 5,000 UNIT/ML 1 ML VIAL SUBCUT SCH ×2 (09:53→21:13)
[2019-07-11] MEDS: FLUTICASONE/VILANTEROL 200-25 MCG/DOSE IH SCH (09:56)
[2019-07-11] MEDS ORDERED: ERGOCALCIFEROL (VITAMIN D2) 50000 UNIT (1.25 MG) CAPSULE PO SCH (10:00)
--- NOTE | 2019-07-11 16:51 | PDOC PROGRESS REPORT ---
Subjective Progress Note for:: 07/11/19 Subjective:: MEGAN ARTEAGA is a 79 year old female with a past medical history of hypertension, hyperlipidemia, history of colon resection, history of Mobitz type II, prior pacemaker placement in October 2018 for significant bradycardia was brought in after a questionable syncope. No acute event overnight but presyncope work-up has been remarkable for positive orthostatic vital signs so far. She denies any chest pain, shortness of breath or dizziness. Orthostatic vital signs this morning are still positive. Continue IV fluids and discontinue antihypertensives for now. Carotid Doppler and pacemaker interrogation pending. Reason For Visit: PRESYNCOPE Physical Exam Vital Signs: Temp Pulse Resp BP Pulse Ox 98.4 F 72 18 154/81 H 98 07/11/19 15:50 07/11/19 15:50 07/11/19 15:50 07/11/19 15:50 07/11/19 15:50 Intake & Output 07/10/19 07/11/19 07/12/19 06:59 06:59 06:59 Intake Total 730 480 Balance 730 480 Weight 146 lb 2.664 oz General appearance: PRESENT: no acute distress, well-developed, well-nourished Head exam: PRESENT: normocephalic Eye exam: PRESENT: conjunctiva pink, EOMI, PERRLA. ABSENT: scleral icterus Ear exam: PRESENT: normal external ear exam Mouth exam: PRESENT: moist, tongue midline Neck exam: ABSENT: carotid bruit, JVD, lymphadenopathy, thyromegaly Respiratory exam: PRESENT: clear to auscultation aline. ABSENT: rales, rhonchi, w heezes Cardiovascular exam: PRESENT: RRR. ABSENT: diastolic murmur, rubs, systolic murmur Pulses: PRESENT: normal dorsalis pedis pul GI/Abdominal exam: PRESENT: normal bowel sounds, soft. ABSENT: distended, guarding, mass, organolmegaly, rebound, tenderness Rectal exam: PRESENT: deferred Extremities exam: PRESENT: full ROM. ABSENT: calf tenderness, clubbing, pedal edema Neurological exam: PRESENT: alert, awake, oriented to person, oriented to place, oriented to time, oriented to situation, CN II-XII grossly intact. ABSENT: motor sensory deficit Results Laboratory Results: 07/10/19 09:44 07/10/19 09:44 07/10/19 09:44 TSH 2.39 07/10/19 09:44 Troponin I < 0.012 Impressions: Knee X-Ray 07/10/19 00:00 IMPRESSION: DJD. Cervical Spine CT 07/10/19 09:18 IMPRESSION: 1. Soft tissue injury right frontal scalp. 2. No acute intracranial abnormality. 3. No facial fracture. 4. No cervical spine fracture or malalignment. Facial Bones CT 07/10/19 09:18 IMPRESSION: 1. Soft tissue injury right frontal scalp. 2. No acute intracranial abnormality. 3. No facial fracture. 4. No cervical spine fracture or malalignment. Head CT 07/10/19 09:18 IMPRESSION: 1. Soft tissue injury right frontal scalp. 2. No acute intracranial abnormality. 3. No facial fracture. 4. No cervical spine fracture or malalignment. Assessment and Plan - Diagnosis (1) Pre-syncope Is this a current diagnosis for this admission?: Yes Plan: 07/10: Patient unable to give a good history if she actually syncopized which he said she does not think she lost consciousness. Possibility that intake of muscle relaxants might have been related to her fall. Regardless, we will have her pacemaker interrogated. We will check orthostatic vital signs. Also check carotid Doppler. 07/11: Presyncope work-up has been remarkable for positive orthostatic vital signs so far. She denies any chest pain, shortness of breath or dizziness. Orthostatic vital signs this morning are still positive. Continue IV fluids and discontinue antihypertensives for now. Carotid Doppler and pacemaker interrogation pending. (2) Fall Is this a current diagnosis for this admission?: Yes Plan: Trauma work-up has been unremarkable. (3) Hypertension Is this a current diagnosis for this admission?: Yes Plan: Hold antihypertensives for now. (4) History of colon resection Is this a current diagnosis for this admission?: Yes - Time Time Spent with patient: 15-24 minutes
[2019-07-11] MEDS: KETOROLAC TROMETHAMINE INJ/PF 30 MG/1 ML SDV IV PRN (18:19)
[2019-07-11] MEDS: NORMAL SALINE 1000 ML 1,000 ML IV PRN (18:19)
[2019-07-11] MEDS: FENOFIBRATE NANOCRYSTALLIZED 48 MG TABLET PO SCH (21:14)
[2019-07-12] MEDS: HEPARIN SOD (PORCINE) 5,000 UNIT/ML 1 ML VIAL SUBCUT SCH (09:26)
[2019-07-12] MEDS: PANTOPRAZOLE SODIUM 20 MG TABLET.DR PO SCH (09:28)
[2019-07-12] MEDS: FERROUS SULFATE 325 MG TABLET PO SCH (09:28)
[2019-07-12] MEDS: FLUTICASONE/VILANTEROL 200-25 MCG/DOSE IH SCH (09:28)
--- NOTE | 2019-07-12 12:20 | RADIOLOGY REPORT (SQ) ---
EXAM DESCRIPTION: CAROTID DOPPLER COMPLETED DATE/TIME: 07/12/2019 12:02 pm REASON FOR STUDY: syncope R53.1 WEAKNESS COMPARISON: None. TECHNIQUE: Grayscale ultrasound, Doppler velocity and spectra, and color Doppler images acquired of the extra-cranial carotid and vertebral arteries. Images stored on PACS. LIMITATIONS: None. FINDINGS: RIGHT CAROTID CCA Velocities: Within normal limits. ICA Velocities Peak systolic 54 cm/s. End diastolic 20 cm/s. Proximal ICA/CCA peak systolic ratio 0.82. Spectra normal. No significant plaque. LEFT CAROTID CCA Velocities: Within normal limits. ICA Velocities Peak systolic 72 cm/s. End diastolic 24 cm/s. Proximal ICA/CCA peak systolic ratio 1.47. Spectra normal. No significant plaque. VERTEBRAL ARTERIES: Antegrade flow. Normal waveforms. SUBCLAVIAN ARTERIES: No finding. OTHER: No other significant finding. IMPRESSION: NO HEMODYNAMICALLY SIGNIFICANT STENOSIS. COMMENT: Quality ID #[id number]: Velocity criteria are extrapolated from the diameter data as defined by t he Society of Radiologists in Ultrasound Consensus Conference. Radiology 2003: 229; 340-346. TECHNICAL DOCUMENTATION: JOB ID: [id number] [employer]- All Rights Reserved Reading location - IP/workstation name: [email or web address]
[2019-07-12 13:47] VITALS: BP 148/80
--- NOTE | 2019-07-12 18:00 | PDOC DISCHARGE SUMMARY ---
General - Admit/Disc Date/PCP Admission Date/Primary Care Provider: 07/10/19 14:21 DUANE ALMODOVAR MD Discharge Date: 07/12/19 - Discharge Diagnosis (1) Pre-syncope Is this a current diagnosis for this admission?: Yes (2) Fall Is this a current diagnosis for this admission?: Yes (3) Hypertension Is this a current diagnosis for this admission?: Yes (4) History of colon resection Is this a current diagnosis for this admission?: Yes - Additional Information Resuscitation Status: Full Code Discharge Diet: As Tolerated Discharge Activity: Activity As Tolerated Prescriptions: Lidocaine [Ztlido] 1 each TP DAILYP PRN #5 adh..patch PRN Reason: Home Medications: Ergocalciferol (Vitamin D2) [Drisdol 50,000 unit (1.25MG) Capsule] 50,000 unit PO SANCHEZ@1000 11/06/18 Esomeprazole Magnesium [Nexium 24Hr] 20 mg PO BID 11/06/18 Fenofibrate Nanocrystallized [Tricor 48 mg Tablet] 48 mg PO QHS 11/06/18 Celecoxib 100 mg PO Q12HP PRN 07/10/19 Cetirizine HCl [Zyrtec 10 mg Tablet] 10 mg PO DAILY 07/10/19 Ferrous Sulfate [Feosol 325 mg Tablet] 325 mg PO BID 07/10/19 Fluticasone/Vilanterol [Breo Ellipta 200-25 Mcg INH] 1 inh IH DAILY 07/10/19 Pravastatin Sodium 10 mg PO QHS 07/10/19 Lidocaine [Ztlido] 1 each TP DAILYP PRN #5 adh..patch 07/12/19 Metoprolol Succinate [Toprol Xl 25 mg Tab.sr] 12.5 mg PO Q12 #0 07/12/19 History of Present Illness History of Present Illness: MEGAN ARTEAGA is a 79 year old female with a past medical history of hypertension, hyperlipidemia, history of colon resection, history of Mobitz type II, prior pacemaker placement in October 2018 for significant bradycardia was brought in after a questionable syncope. Patient says she has been apparently fine until early this morning when she was walking on the sidewalk and fell the ground sustaining a hematoma on the head and the right arm. She is not able to tell us the circumstances of her fall. She says she is not sure if she tripped or if she just lost her balance. She says she is not sure if she syncopized but she thinks that she did not lose consciousness. Denies fecal or urinary incontinence. She says she did not feel any dizziness or palpitations prior to the episode. She denies she lost conscio usness. She did say she took a muscle relaxant yesterday and this morning. Her friend at bedside says she had a few episodes of easily getting winded in the past few weeks. Hospital Course Hospital Course: MEGAN ARTEAGA is a 79 year old female with a past medical history of hypertension, hyperlipidemia, history of colon resection, history of Mobitz type II, prior pacemaker placement in October 2018 for significant bradycardia was brought in after a questionable syncope. Presyncope work-up has been remarkable for positive orthostatic vital signs. She sustained some hematoma in the face and a small laceration in the right arm but her trauma work-up was unremarkable. Her pacemaker interrogation was unremarkable. Carotid Doppler was also negative. Her antihypertensives were held and she was started on IV fluids. Her orthostatic blood pressures did improve and orthostasis resolved on day of discharge. Her hydrochlorothiazide was discontinued and her Lopressor was decreased to just 12.5 mg twice daily. She was also advised to refrain from taking Flexeril. She will closely follow- up with her activities leader and PCP. Physical Exam Vital Signs: Temp Pulse Resp BP Pulse Ox 98.0 F 76 16 148/80 H 96 07/12/19 13:45 07/12/19 13:45 07/12/19 13:45 07/12/19 13:45 07/12/19 13:45 Intake & Output 07/11/19 07/12/19 07/13/19 06:59 06:59 06:59 Intake Total 730 1980 360 Balance 730 1980 360 Weight 146 lb 2.664 oz 143 lb 1.28 oz General appearance: PRESENT: no acute distress, well-developed, well-nourished Head exam: PRESENT: other - hematomas onr ight sided facial area Eye exam: PRESENT: conjunctiva pink, EOMI, PERRLA. ABSENT: scleral icterus Ear exam: PRESENT: normal external ear exam Mouth exam: PRESENT: moist, tongue midline Neck exam: ABSENT: carotid bruit, JVD, lymphadenopathy, thyromegaly Respiratory exam: PRESENT: clear to auscultation aline. ABSENT: rales, rhonchi, wheezes Cardiovascular exam: PRESENT: RRR. ABSENT: diastolic murmur, rubs, systolic murmur Pulses: PRESENT: normal dorsalis pedis pul GI/Abdominal exam: PRESENT: normal bowel sounds, soft. ABSENT: distended, guarding, mass, organolmegaly, rebound, tenderness Rectal exam: PRESENT: deferred Extremities exam: PRESENT: full ROM. ABSENT: calf tenderness, clubbing, pedal edema Neurological exam: PRESENT: alert, awake, oriented to person, oriented to place, oriented to time, oriented to situation, CN II-XII grossly intact. ABSENT: motor sensory deficit Results Laboratory Results: 07/10/19 09:44 07/10/19 09:44 07/10/19 09:44 Troponin I < 0.012 Impressions: Knee X-Ray 07/10/19 00:00 IMPRESSION: DJD. Cervical Spine CT 07/10/19 09:18 IMPRESSION: 1. Soft tissue injury right frontal scalp. 2. No acute intracranial abnormality. 3. No facial fracture. 4. No cervical spine fracture or malalignment. Facial Bones CT 07/10/19 09:18 IMPRESSION: 1. Soft tissue injury right frontal scalp. 2. No acute intracranial abnormality. 3. No facial fracture. 4. No cervical spine fracture or malalignment. Head CT 07/10/19 09:18 IMPRESSION: 1. Soft tissue injury right frontal scalp. 2. No acute intracranial abnormality. 3. No facial fracture. 4. No cervical spine fracture or malalignment. Carotid Doppler Study 07/12/19 00:00 IMPRESSION: NO HEMODYNAMICALLY SIGNIFICANT STENOSIS. Qualifiers - * PATIENT BEING DISCHARGED WITH ANY OF THE FOLLOWING DIAGNOSIS: No Acute Heart Failure - Is this a Heart Failure Patient?: No
== END 2019-07-12 15:00 | disposition home or self-care (01) ==
LOC: ER 08:19 → EH 14:21 → 4S 18:35
PROVIDERS: ADMIT Internal Medicine; ATTEND Internal Medicine
DX: R55 Syncope and collapse (principal); I10 Essential (primary) hypertension; E78.5 Hyperlipidemia, unspecified; S51.811A Laceration without foreign body of right forearm, initial encounter; S00.03XA Contusion of scalp, initial encounter; S00.211A Abrasion of right eyelid and periocular area, initial encounter; S80.212A Abrasion, left knee, initial encounter; S80.211A Abrasion, right knee, initial encounter; W19.XXXA Unspecified fall, initial encounter; Y92.480 Sidewalk as the place of occurrence of the external cause; Y93.01 Activity, walking, marching and hiking; M13.89 Other specified arthritis, multiple sites; G89.29 Other chronic pain; M54.2 Cervicalgia; M54.9 Dorsalgia, unspecified; M79.631 Pain in right forearm; Z79.899 Other long term (current) drug therapy; Z85.038 Personal history of other malignant neoplasm of large intestine; Z90.49 Acquired absence of other specified parts of digestive tract; Z45.018 Encounter for adjustment and management of other part of cardiac pacemaker
CPT/HCPCS: 93005; 99285; 96361; 96374; 36415; 83735; 84443; 85025; 80053; 81001; 84484; 93880; 71046; 73090; 73564; 72110; 72070; 70450; 70486; 72125; 93010; G0378 ×4; J1644 ×3; J3490 ×5; J3010; J1885 ×2; J7030 ×2; J7040; A9270 ×3